=== PATIENT | female | born 1985 | race Caucasian/White ===

== ENCOUNTER 2018-02-13 16:26 | Emergency (ER) | payer MEDICAID, SELFPAY ==
[2018-02-13 16:30] VITALS: BP 133/81; PULSE 78; RESP 16; TEMP 37; O2SAT 99
--- NOTE | 2018-02-13 16:48 | ED.GENADUL_ITS ---
Disposition Clinical Impression: Threatened miscarriage in early Disposition: HOME Condition: Fair Additional Instructions: Encourage hydration. Stop smoking. Continue with vitamins. Please call [employer] [facility] Friday morning to schedule follow-up as soon as possible. Your evaluation here is indeterminate. You may be earlier than you expected based on your last menstrual period. If you develop abdominal pain, fever/chills, increased. Bleeding or other new/worsening symptoms please seek care urgently once again. Please call the number listed below to schedule appointment. Referrals: Kristal Contreras MD [ [facility] STAFF PHYSICIAN] - Medical Decision Making - Lab Data Laboratory Tests 02/13/18 02/13/18 02/13/18 16:40 17:19 17:19 WBC 6.98 RBC 5.07 Hgb 14.7 Hct 43.2 MCV 85.2 MCH 29.0 MCHC 34.0 RDW 12.6 Plt Count 328 MPV 8.9 Immature Gran % 0.1 Neutrophils % 53.1 Lymphocytes % 36.0 Monocytes % 7.9 Eosinophils % 2.6 Basophils % 0.3 Absolute Neutrophils 3.71 Absolute Lymphocytes 2.51 Absolute Monocytes 0.55 Absolute Eosinophils 0.18 Absolute Basophils 0.02 Sodium 136 Potassium 3.2 L Chloride 102 Carbon Dioxide 24.6 Anion Gap 9.4 BUN 8 Creatinine 0.81 Estimated GFR/1.73 m2 >= 60.00 Glucose 91 Calcium 9.1 Total Bilirubin 0.3 AST 15 ALT 17 Alkaline Phosphatase 92 Total Protein 8.3 H Albumin 4.1 Beta HCG, Quant 7665 H Urine Color Yellow Urine Clarity Sl cloudy Urine pH 5.5 Ur Specific Grapevine >= 1.030 H Urine Protein Negative Urine Ketones Negative Urine Blood Moderate H Urine Nitrite Negative Urine Bilirubin Negative Urine Urobilinogen 0.2 Ur Leukocyte Esterase Negative Urine RBC 10-20 H Urine WBC 0-2 Ur Epithelial Cells Many Urine Crystals Negative Urine Bacteria Moderate Urine Casts Negative Urine Mucus Moderate Ur Culture Indicated? No/sq. contamination Urine Glucose Negative Patient ABO/Rh Antibody Screen 02/13/18 17:19 WBC RBC Hgb Hct MCV MCH MCHC RDW Plt Count MPV Immature Gran % Neutrophils % Lymphocytes % Monocytes % Eosinophils % Basophils % Absolute Neutrophils Absolute Lymphocytes Absolute Monocytes Absolute Eosinophils Absolute Basophils Sodium Potassium Chloride Carbon Dioxide Anion Gap BUN Creatinine Estimated GFR/1.73 m2 Glucose Calcium Total Bilirubin AST ALT Alkaline Phosphatase Total Protein Albumin Beta HCG, Quant Urine Color Urine Clarity Urine pH Ur Specific Grapevine Urine Protein Urine Ketones Urine Blood Urine Nitrite Urine Bilirubin Urine Urobilinogen Ur Leukocyte Esterase Urine RBC Urine WBC Ur Epithelial Cells Urine Crystals Urine Bacteria Urine Casts Urine Mucus Ur Culture Indicated? Urine Glucose Patient ABO/Rh A Positive Antibody Screen Negative Results reviewed for labs ordered during visit: Yes - Radiology Data Radiology results: report reviewed Ultrasound was reviewed by radiologist. They advised that there is 2 fluid collections within the endometrial cavity one measuring personally 3 cm in its greatest dimension with internal debris and a second adjacent measuring 1.2 cm. No pole is identified. This may represent a failed or ectopic also cannot be excluded and continued follow-up with serial beta hCG measurements and serial sonography as clinically indicated will be needed. Ovaries appear normal with normal blood flow and minimal follicular cyst. No significant free fluid. - Medical Decision Making Patient presents today with chief complaint of bleeding in the first trimester. Patient is not endorsing any abdominal pain. Reports at this point pain is minimal. For the past 2 days she is only going from 1 thin pad daily and reports that blood on this is fairly minimal. However, she is concerned she passed a large clot this morning. Patient appears in no acute distress. No pain she is concerned she may be having a miscarriage. UPT was positive here. I did send a urinalysis and patient was also endorsing dysuria. Laboratory evaluation significant for hCG of 7665. This is lower than expected. No leukocytosis. Labs otherwise without motor findings. Potassium slightly low at 3.2. Advised oral intake of potassium. Patient is B+. No RhoGam is indicated. Ultrasound reviewed by electrical instrumentation technician who advised that there is 2 fluid collections in the uterus. Advised no pole. Ovaries without significant abnormality Radiologist reviewed imaging and agrees with the above help. However, they advised that this may be a failed or an ectopic could not be excluded. Patient is not endorsing any discomfort. None was elicited on exam. No cramping. At this point, I do not have other reason to leave ectopic particularly as the ovaries appeared normal with normal blood flow. Discussed the above findings with the patient. Advised that at this point she may just be earlier than we expected given the hCG and the findings on the ultrasound. However, I cannot exclude miscarriage at this point. Contacted [facility] and spoke with on-call physician. He advised that the patient may be earlier than expected. Patient does report that she frequently has irregular menses. Plan is for patient to follow-up with [facility] on Friday. Patient and I discussed plan moving forward. Encourage hydration. Advised that she continue with her vitamins. I encouraged smoking cessation. She will contact [facility] Friday morning to schedule appointment for follow-up. We discussed that she would need repeat testing to ensure viability of current . Discussed new/worsening symptoms when to seek care urgently once again. All of her questions and concerns were addressed and she is in agreement this plan. History of Present Illness - General Chief complaint: [facility] Stated complaint: BLEEDING/PREG Time Seen by Provider: 02/13/18 16:43 Source: patient, family, RN notes reviewed Mode of arrival: ambulatory Limitations: no limitations - History of Present Illness Initial comments: Patient is a 32-year-old female presenting today with chief complaint of bleeding in the first trimester . Patient reports that LMP was December 10. She reports she is taken to home test both of which were positive. Patient has not yet been seen by [facility]. Patient reports discomfort of with long-term significant other. Patient has 1 child at home and has history of 1 miscarriage. Patient has had a D&C historically. She reports that she has not been tested for STDs recently. Denies any vaginal discharge or dyspareunia prior to bleeding. States she has been using one thin pad daily. However, she reports that she had one large clot this morning when urinating. The bleeding has slowed down once again. She denies any cramping. No fevers or chills. No abdominal pain. No nausea vomiting. No change in bowel habits. Patient reports she is intermittent dysuria. States that when here, she had one episode of dysuria. Has been experiencing this prior to that. She reports she is not having any vaginal discharge prior to the onset of bleeding yesterday. She denies any fevers or chills. No previous abdominal surgeries. Patient is an active smoker. She does report that she is taking vitamins. - Related Data Unknown [No Known Home Meds] 02/13/18 Allergies Allergy/AdvReac Type Severity Reaction Status Date / Time sertraline AdvReac Restless Unverified 02/13/18 16:34 legs Review of Systems Constitutional: no symptoms reported Respiratory: no symptoms reported Gastrointestinal: as per HPI Genitourinary: as per HPI Musculoskeletal: as per HPI Skin: denies: rash, lesions Neurological: denies: headache Past Medical History - Past Medical History Medical history: no medical history Surgical history: other (D&C) LMP comments: - Social History Living Situation: lives with family General Exam - General Limitations: no limitations General appearance: alert, in no apparent distress - Eye Eye exam: Present: normal apperance - Respiratory Respiratory exam: Present: normal lung sounds bilaterally. Absent: respiratory distress - Cardiovascular Cardiovascular Exam: Present: regular rate, normal rhythm, normal heart sounds - GI/Abdominal GI/Abdominal exam: Present: soft, normal bowel sounds. Absent: distended, tenderness, guarding, rebound, rigid, organomegaly, mass - Rectal Rectal exam: Present: deferred - Extremities Exam Extremities exam: Present: normal inspection. Absent: pedal edema, calf tenderness - Back Exam Back exam: Present: normal inspection. Absent: CVA tenderness (R), CVA tenderness (L) - Neurological Exam Neurological exam: Present: alert, normal gait - Psychiatric Psychiatric exam: Present: normal affect, normal mood - Skin Skin exam: Present: warm, dry, normal color Course Vital Signs - 24 hr 02/13/18 16:30 Temperature 37.0 C Pulse 78 Respiratory 16 Rate Blood Pressure 133/81 Pulse Oximetry 99
[2018-02-13 16:59] LABS: Bilirubin Negative (Negative); Blood Moderate (Negative); Clarity Sl Cloudy; Glucose Negative (Negative); Ketones Negative (Negative); Leukocyte Esterase Negative (Negative); Nitrite Negative (Negative); Specific Gravity >= 1.030 (1.005-1.025); Urobilinogen 0.2 EU/dL (Up TO 0.2); pH 5.5 (5-8)
[2018-02-13 17:06] LABS: Bacteria Moderate HPF (Negative); Crystals Negative HPF (Negative); Epithelial Cells Many HPF (Negative); WBC 0-2 HPF (0-5)
[2018-02-13 17:07] LABS: C & S Indicated? No/Sq. Contamination; Casts Negative LPF (Negative); Mucus Moderate (Negative)
--- NOTE | 2018-02-13 17:07 | DI.REPORT_ITS ---
Many abnormalities cannot be diagnosed. A normal exam does not exclude a congenital anomaly. Radiology No. [id number] LMP: 12/10/17 Exam Date: 02/13/18 [facility] wks days on EDC ([facility]) Confirmed: HISTORY: BLEEDING IN FIRST TRIMESTER ---- PREDICTED GESTATIONAL AGE NUMBER weeks with a range of week to weeks. 1 2 3 Multiple Determined by___1STUS___LMP___HISTORY Info. pertaining to fetus # PLACENTA PRESENTATION Grade Cephalic___ Anterior___Posterior___ Breech____ Right Left Transverse(head right___ Fundal___Low-lying___Previa___ Transverse(head left___ Varying BIOMETRY AMNIOTIC FLUID BPD: mm weeks Normal HC: mm weeks Oligo Polyhydramnios AC: mm weeks FL: mm weeks AMNIOTIC FLUID INDEX >26 WK CRL: mm weeks Cisterna Magna: mm CI: RUQ: LUQ Cerebellum: cm EFW: grams Percentile RLQ: LLQ GSD: 21 mm Total: cms Composite AGE= 7.1 wks EDC by US____10/01/18 BIOPHYSICAL PROFILE ANATOMY IDENTIFIED SCORE 0/2 Heart: 4-Chamber___Rate:BPM LVOT: RVOT: Amniotic Fluid(>2cms)____ Stomach: Kidneys: Respirations (>30 secs) Bladder: Post. Fossa: Body Flex/Extension 3 vessel cord: Ventricles: cord insertion: Lips:____ Extremity Flex/Extension spinal morphology: Nose: Total Score= Palate: NS=not seen Routine examination. Within the endometrial cavity, there are two fluid collections, the largest measures approximately 3 cm. in diameter. There is internal debris. No pole or yolk sac is identified. The second adjacent fluid collection measures 1.2 cm. No pole pole or yolk sac is seen internally. The ovaries were visualized bilaterally. Follicular cysts are seen bilaterally in the ovaries, the largest follicular cyst is seen on the right ovary and measures 1.9 by 1.3 cm. No internal blood flow or debris is seen. No significant free fluid is seen in the pelvis. IMPRESSION: Two fluid collections seen within the endometrial canal. No pole or yolk sac is identified. This may represent a failed / non viable . Abnormal such as an ectopic cannot be entirely excluded. Continued follow up is recommended. Serial sonography and beta HCG measurements are recommended.
[2018-02-13 17:35] LABS: Abs Immature Grans 0.01 k/cumm (0.0-0.09); Absolute Basophil Count 0.02 k/cumm (0.0-0.2); Absolute Eosinophil Count 0.18 k/cumm (0.0-0.7); Absolute Lymphocyte Count 2.51 k/cumm (1.2-3.4); Absolute Monocyte Count 0.55 k/cumm (0.11-0.7); Absolute Neutrophil Count 3.71 k/cumm (1.2-6.7); Basophils % 0.3; Eosinophils % 2.6; HCT 43.2 % (36.0-46.0); HGB 14.7 g/dL (12.0-15.5); Immature Grans % 0.1; Mean Corpuscular Volume 85.2 fL (80-95); Mean Platelet Volume 8.9 fL (8.0-11.0); Monocytes % 7.9; Neutrophils % 53.1; Platelet Count 328 x1000/uL (130-400); RBC 5.07 m/cumm (4.00-5.20); RBC Distribution Width 12.6 % (11.7-14.6); White Blood Cell Count 6.98 k/cumm (4.4-10.8)
[2018-02-13 18:07] LABS: ALT 17 U/L (12-78); AST 15 U/L (15-37); Albumin 4.1 g/dL (3.4-5.0); Alkaline Phosphatase 92 U/L (46-116); Anion Gap 9.4 mmol/L (3-11); BUN 8 mg/dL (7-18); Bilirubin, Total 0.3 mg/dL (0.2-1.0); CO2 24.6 mmol/L (21.0-32.0); CREATININE 0.81 mg/dL (0.55-1.02); Calcium 9.1 mg/dL (8.5-10.1); Chloride 102 mmol/L (98-107); Glucose 91 mg/dL (70-100); Potassium 3.2 mmol/L (3.5-5.1); Sodium 136 mmol/L (136-145); Total Protein 8.3 g/dL (6.4-8.2)
[2018-02-13 18:09] LABS: HCG Quant, Pregnancy 7665 mIU/mL (1-3)
[2018-02-13 18:52] VITALS: BP 123/74; PULSE 74; RESP 16; TEMP 36.9; O2SAT 97
--- NOTE | 2018-02-13 18:53 | DI.VRAD_ITS ---
EXAM: US , Transvaginal CLINICAL HISTORY: 32 years old, female; Signs and symptoms; Lmp or gestational age (in weeks): Lmp 12/10/2017 (unsure of dates); Other: Mild vaginal bleeding x 2 days; TECHNIQUE: Real-time transvaginal obstetrical ultrasound of the maternal pelvis and a first trimester with image documentation. Transvaginal imaging was used for better evaluation of the fetus and adnexa. COMPARISON: No relevant prior studies available. FINDINGS: 2 fluid collections within the endometrial cavity one measuring approximately 3 cm in greatest dimension with internal debris and a second adjacent measuring 1.2 cm. No pole is identified. This may or present a failed or ectopic also could not be excluded and continued followup with serial beta hCG measurements and serial sonography as clinically indicated will be needed. Ovaries appear normal with normal blood flow and minimal follicular cysts. No significant free fluid. IMPRESSION: Equivocal findings as described. The possibility of ectopic cannot be excluded and continued follow up with serial beta hCG measurements will be needed. Dictated and Authenticated by: Anthony Cervantes MD. Ordering:THAD COMBS MD
== END 2018-02-13 18:57 | disposition home or self-care (01) ==
PROVIDERS: Physician Assistant; Emergency Provider Emergency Medicine
DX: O20.0 Threatened abortion (principal); O99.331 Smoking (tobacco) complicating pregnancy, first trimester; Z3A.00 Weeks of gestation of pregnancy not specified
CPT/HCPCS: 36415; 80053; 81025; 86850; 86900; 86901; 99284; 76817; 81003; 81015; 84702; 85025

== ENCOUNTER 2018-03-04 15:03 | Outpatient (CLI) | payer MEDICAID, SELFPAY ==
--- NOTE | 2018-03-04 11:48 | HPE_ITS ---
Date of service: 03/04/18 Time of Service: 11:48 Assessment and Plan (1) Anxiety: Current visit: No Status: Acute (2) Depressive disorder: Current visit: No Status: Acute (3) Nicotine dependence: Current visit: No Status: Acute (4) Incomplete miscarriage with blood clot: Start date: 02/19/18 Current visit: Yes Status: Acute Incomplete SAB with continued heavy bleeding patient currently 11 weeks 2 days estimated gestational age. I have recommended a repeat ultrasound diagnostic imaging to confirm my findings of a intrauterine with no evidence of adnexal masses. Patient was counseled and accepts cervical dilatation and suction evacuation of uterine contents. Informed consent was obtained. He was counseled regarding the risk of bleeding and just including bowel bladder and uterus secondary to perforation. She was counseled regarding the risk of infection. [facility]. Pending those findings she will be scheduled for a D&C hopefully later today. Ms. Og is a 32-year-old female with a last menstrual period of 2017 who presents to [facility] with daily uterine bleeding since an evaluation in the emergency department at [facility] at the end of January 2018. A pelvic ultrasound showed no evidence for an intrauterine and normal adnexa. Her serum hCG was approximately 3000 mIU/ml. She was advised to follow- up at [facility] but has been unable to do so. She became concerned because the bleeding has persisted and has worsened with passage of clots and saturation of yanick pads every few hours. Patient is Rh+. Review of Systems Constitutional Reports poor appetite Cardiovascular Reports as per HPI Respiratory Reports cough (Occasional cough) Gastrointestinal Reports other (Decreased appetite) Genitourinary Reports metrorrhagia (Daily bleeding since end january. Saturated peripads every few hours.) and Reports pelvic pain (Diffuse nonfocal pelvic pain bilaterally) Musculoskeletal Reports system reviewed and no additional complaints, except as docu Neurologic Reports as per HPI Psychiatric Reports anxiety (This is a planned patient is understandably upset about the loss of the ) PFSH Family History Mother Disorder of thyroid gland Melanoma Sister Disorder of thyroid gland Father Diabetes Grandfather Myocardial infarction Medical History Tobacco use (Acute) Elective (Resolved) Social History adopted: No number of children: 0 current occupational status: employed 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: daily duration: 15-30 minutes/day Smoking/Tobacco Use Status: Current every day tobacco type: cigarettes alcohol intake: never substance use type: does not use seatbelt use: always Meds Home Medications Medication Instructions Recorded Confirmed Type Unknown [No Known Home Meds] 02/13/18 03/04/18 History Allergies Allergy/AdvReac Type Severity Reaction Status Date / Time sertraline AdvReac Restless Unverified 03/04/18 10:42 legs Exam Const General: cooperative and anxious (Tearful but cooperative) Nutritional Appearance: average body habitus Orientation: alert, awake and oriented x3 Neck Neck: normal visual inspection Thyroid: thyroid normal Resp Effort & Inspection: normal respiratory effort and able to speak in complete sentences Cardio Rate: regular rate Rhythm: regular rhythm Heart Sounds: S1 normal and S2 normal GI Palpation: soft and no hepatosplenomegaly External Female Exam: external appearance normal Speculum Exam - Vagina: other (Bright red blood in vagina) Speculum Exam - Cervix: closed cervix Manual OB Exam: other Skin General skin exam: no rashes or lesions noted and pallor Lesions: lesion noted (Facial acne) Hair: normal Nails: normal Extrem General: normal to inspection
--- NOTE | 2018-03-04 13:10 | DI.US_ITS ---
SYMPTOMS/DIAGNOSIS: INCOMPLETE SPONTANEOUS , O03.4 OBSTETRICAL ULTRASOUND: Many abnormalities cannot be diagnosed. A normal exam does not exclude a congenital anomaly. Radiology No. LMP: Exam Date: [facility] wks days on EDC ([facility]) Confirmed: HISTORY: ---- PREDICTED GESTATIONAL AGE NUMBER weeks with a range of week to weeks. 1 2 3 Multiple Determined by___1STUS___LMP___HISTORY Info. pertaining to fetus # PLACENTA PRESENTATION Grade Cephalic___ Anterior___Posterior___ Breech____ Right Left Transverse(head right___ Fundal___Low-lying___Previa___ Transverse(head left___ Varying BIOMETRY AMNIOTIC FLUID BPD: mm weeks Normal HC: mm weeks Oligo Polyhydramnios AC: mm weeks FL: mm weeks AMNIOTIC FLUID INDEX >26 WK CRL: mm weeks Cisterna Magna: mm CI: RUQ: LUQ Cerebellum: cm EFW: grams Percentile RLQ: LLQ Total: cms Composite AGE= wks EDC by US BIOPHYSICAL PROFILE ANATOMY IDENTIFIED SCORE 0/2 Heart: 4-Chamber___Rate:BPM LVOT: RVOT: Amniotic Fluid(>2cms)____ Stomach: Kidneys: Respirations (>30 secs) Bladder: Post. Fossa: Body Flex/Extension 3 vessel cord: Ventricles: cord insertion: Lips:____ Extremity Flex/Extension spinal morphology: Nose: Total Score= Palate: NS=not seen COMMENTS: Routine examination was performed. Comparison is 02/13/18. The endometrial stripe is thickened and heterogeneous. There is fluid in the lower uterine segment portion of the endometrial canal. The endometrial canal measures 2.1 cm in thickness. There is blood flow seen within the heterogeneous endometrial tissue. No evidence of an intrauterine gestational sac is present. Both ovaries were visualized and are grossly unremarkable. Small follicular cysts are seen bilaterally within the ovaries. There is normal blood flow to the ovaries bilaterally. No evidence of torsion is seen. No significant free fluid is seen in the pelvis. IMPRESSION: Interval heterogeneous thickened vascular endometrium. The findings are suspicious for a failed . Spontaneous in progress should be considered. These findings were discussed with Dr. Contreras on the date of the examination.
== END 2018-03-04 15:23 ==
PROVIDERS: Visit Provider Obstetrics & Gynecology Gynecology
DX: O03.4 Incomplete spontaneous abortion without complication (principal); R93.8 Abnormal findings on diagnostic imaging of other specified body structures; N83.01 Follicular cyst of right ovary; N83.02 Follicular cyst of left ovary
CPT/HCPCS: 76801

== ENCOUNTER 2018-03-05 10:11 | PSDC | payer MEDICAID, SELFPAY ==
[2018-03-05 10:30] VITALS: BP 116/69; PULSE 92; RESP 18; TEMP 37.6; O2SAT 98
[2018-03-05 10:58] LABS: HCT 29.7 % (36.0-46.0); Mean Corp. HGB Concentration 33.7 g/dL (32.0-36.0); Mean Corpuscular Hemoglobin 29.2 pg (27.0-33.0); Mean Corpuscular Volume 86.8 fL (80-95); Mean Platelet Volume 8.7 fL (8.0-11.0); Platelet Count 372 x1000/uL (130-400); RBC 3.42 m/cumm (4.00-5.20); RBC Distribution Width 12.3 % (11.7-14.6); White Blood Cell Count 6.31 k/cumm (4.4-10.8)
[2018-03-05] MEDS: Lactated Ringers 1,000 ML 125 ML IV (11:06)
[2018-03-05] MEDS: DOXYCYCLINE 100 MG in Normal Saline 100 ML IVPB (11:40)
[2018-03-05] MEDS: Lidocaine 1% Pres-Free 5 ML VIAL 20 ML (11:51)
--- NOTE | 2018-03-05 11:58 | POCSPONT_PTH ---
PATIENT: Ana Og LOC: [facility] U#:[id number] AGE/SX: 32/F ROOM: RE03/05/[address]: Kristal Contreras : 1985 BED: DIS: 03/05/2018 SPEC #: [id number] RECD: 03/05/18 12:27 STATUS: MEI REQ #: [id number] TIFFANIE: 03/05/18 11:[address]: Kristal Contreras DEPT: Surgical Specimen RECD BY: Nia Tao ENTERED: 03/05/18 12:27 SP TYPE: POCRYLIE STEWARD DR: None Tissues: 1 - ,SPONTANEOUS Procedures: GROSS AND MICRO LEVEL 4 Comments: [id number]
--- NOTE | 2018-03-05 12:15 | W.PM.DSUDISC ---
Discharge Plan Disposition Patient Disposition: HOME Condition: Fair Discharge Details Reason For Visit: INCOMPLETE AB Attending Provider: Kristal Contreras Primary Care Provider: NONE,NONE Home Meds and New Rx's Prescriptions: New methylergonovine [Methergine] 0.2 mg tablet 0.2 mg PO TID 3 Days Qty: 9 RF: 0 ibuprofen 600 mg tablet 600 mg PO QID PRN (Reason: pain) Qty: 30 RF: 1 methylergonovine [Methergine] 0.2 mg tablet 0.2 mg PO TID 3 Days Qty: 9 RF: 0 No Action methadone 10 mg/mL concentrate 40 mg PO DAILY RF: 0 ibuprofen 800 mg Tablet 800 mg PO PRN PRNRF: 0 Discharge Instructions Additional Instructions: Postoperative Instructions Outpatient Gynecology Because there will be medication in your system for the next 24 hours, you may feel a little sleepy. Your coordination will be affected. Therefore: Do not drive or operate dangerous equipment for 24 hours. Do not drink alcoholic beverages for 24 hours (not even beer). Plan to go home and rest for the day. Rest, drink liquids and eat lightly for the rest of the day. Do not plan to return to normal activity for two full days. Some women require 5-7 days to feel 100 percent. Arrange to have someone stay with you for the rest of the day. You should arrange for child care education coordinator on the day of surgery. If you have incisions, remove the bandage in 24 hours. You may have a sore throat or hoarseness after surgery. This usually lasts a short time and is relieved by drinking liquids. If hoarseness persists longer than 24 hours, please contact the anesthesia department by calling the hospital. Take Tylenol or Advil for cramping. If that does not work, you may be too active so try cutting back on your activities. You may use up to 3 Advil every (4) four to (6) six hours. Use the prescription medication in between doses of Advil if needed. You should be able to urinate as usual following the surgery. Any form of surgery can cause your menstrual cycle to become irregular. If you have had a D and C you may spot for a week after surgery and your next period will start in (4) four to (6) six weeks. If you have had the sterilization procedure no follow-up appointment is necessary. For other procedures you need a follow-up appointment (4) four to (6) six weeks following surgery. Please call the office for an appointment. If you had a Laparascopic procedure there are no restrictions on douching, tampons, intercourse or tub baths. If you had any vaginal procedure you may not use tampons, have intercourse or douche for 2 weeks. you may take a shower or bath. Please report any of the following conditions or any questions regarding your condition to your doctor and the Day Surgery Unit: Increased drainage or foul smelling drainage. Temperature of 101 F or above. Excessive pain. If you are unable to contact your doctor, contact the hospital at [phone]. Continue all your regular medications unless directed otherwise. Revised 11/27/10 Activity:: Activity as Tolerated Activity:: Activity as Tolerated Equipment/Supplies:: No Equipment Needed Diet:: as tolerated. Discharge Data Discharge Comment: Rx for Methergine and Ibuprofen efaxed to pharmacy. Have pt see me in office in 2 weeks.
--- NOTE | 2018-03-05 12:22 | PDOC.DSDIS_ITS ---
Discharge Plan Disposition Patient Disposition: HOME Condition: Fair Discharge Details Reason For Visit: INCOMPLETE AB Attending Provider: Kristal Contreras Primary Care Provider: NONE,NONE Home Meds and New Rx's Prescriptions: New methylergonovine [Methergine] 0.2 mg tablet 0.2 mg PO TID 3 Days Qty: 9 RF: 0 ibuprofen 600 mg tablet 600 mg PO QID PRN (Reason: pain) Qty: 30 RF: 1 methylergonovine [Methergine] 0.2 mg tablet 0.2 mg PO TID 3 Days Qty: 9 RF: 0 No Action methadone 10 mg/mL concentrate 40 mg PO DAILY RF: 0 ibuprofen 800 mg Tablet 800 mg PO PRN PRNRF: 0 Discharge Instructions Additional Instructions: Postoperative Instructions Outpatient Gynecology * Because there will be medication in your system for the next 24 hours, you may feel a little sleepy. Your coordination will be affected. Therefore: Do not drive or operate dangerous equipment for 24 hours. Do not drink alcoholic beverages for 24 hours (not even beer). Plan to go home and rest for the day. * Rest, drink liquids and eat lightly for the rest of the day. Do not plan to return to normal activity for two full days. Some women require 5-7 days to feel 100 percent. * Arrange to have someone stay with you for the rest of the day. You should arrange for attendant child activity on the day of surgery. * If you have incisions, remove the bandage in 24 hours. * You may have a sore throat or hoarseness after surgery. This usually lasts a short time and is relieved by drinking liquids. If hoarseness persists longer than 24 hours, please contact the anesthesia department by calling the hospital. * Take Tylenol or Advil for cramping. If that does not work, you may be too active so try cutting back on your activities. You may use up to 3 Advil every (4) four to (6) six hours. Use the prescription medication in between doses of Advil if needed. * You should be able to urinate as usual following the surgery. * Any form of surgery can cause your menstrual cycle to become irregular. If you have had a D and C you may spot for a week after surgery and your next period will start in (4) four to (6) six weeks. * If you have had the sterilization procedure no follow-up appointment is necessary. For other procedures you need a follow-up appointment (4) four to (6 ) six weeks following surgery. Please call the office for an appointment. * If you had a Laparascopic procedure there are no restrictions on douching, tampons, intercourse or tub baths. If you had any vaginal procedure you may not use tampons, have intercourse or douche for 2 weeks. you may take a shower or bath. * Please report any of the following conditions or any questions regarding your condition to your doctor and the Day Surgery Unit: Increased drainage or foul smelling drainage. Temperature of 101 F or above. Excessive pain. * If you are unable to contact your doctor, contact the hospital at [phone]. * Continue all your regular medications unless directed otherwise. Revised 11/27/10 Activity:: Activity as Tolerated Activity:: Activity as Tolerated Equipment/Supplies:: No Equipment Needed Diet:: as tolerated. Discharge Data Discharge Comment: Rx for Methergine and Ibuprofen efaxed to pharmacy. Have pt see me in office in 2 weeks.
[2018-03-05 12:40] VITALS: BP 107/74; PULSE 96; RESP 16; TEMP 36.2; O2SAT 96
[2018-03-05] MEDS: Methylergonovine 0.2 MG TAB PO (12:40)
[2018-03-05] MEDS: oxyCODONE 5 MG TAB PO (13:12)
--- NOTE | 2018-03-08 13:32 | W.PM.OP ---
Date of service: 03/05/18 Time of Service: 13:32 Operative Note Date of procedure: 03/05/18 Pre-op diagnosis: SAB, incomplete Post-op diagnosis: same Procedure: Cervical dilation and suction curettage Anesthesia: MAC Estimated blood loss (mL): 5 Pathology: other (Products of conception to pathology) Complications: None Patient was transported to: same day Patient's condition: stable Implants: None Indications: 32-year-old 2 para 0 female with a history of uterine bleeding and positive test since January 2018. Patient had a nonviable documented at the time of emergency room visit the end of January. She requested definitive treatment after expectant management was not successful. Findings: Uterus sounded to 10 cm. A moderate amount of tissue was obtained. Procedure Description: Patient was placed in the dorsal supine position where monitored anesthesia care was administered without difficulty. When she was comfortable she was then placed in the dorsal lithotomy position in yellowfin stirrups, prepped and draped in the usual sterile fashion. A bivalve speculum was placed into the vagina and the anterior lip of the cervix was infiltrated with 1 cc of 1% lidocaine without epinephrine. A single-tooth tenaculum was used to grasp the anterior lip of the cervix and a paracervical block was performed with injection of 4 cc of 1% lidocaine without epinephrine at the 4 and 8:00 cervical vaginal interface respectively. Cervix was dilated to a maximum of 19 [place] and a 8 mm curved suction cannula was then inserted into the uterine cavity attached to suction in all 4 quadrants of the uterine cavity were suctioned. After removal of the plastic conception the suction cannula was removed and a gentle banjo curetting was performed of all 4 quadrants of the uterine cavity. No extra tissue was obtained. A final pass of the suction curette was performed with no tissue obtained. The tenaculum was removed tenaculum site was noted be hemostatic instruments removed the patient's vagina she was placed in the dorsal supine position, very awakened and transported to recovery area in stable condition. All sponge lap and needle counts were correct ?2 she received 100 mg of doxycycline prior to the procedure.
== END 2018-03-05 13:45 | disposition home or self-care (01) ==
PROVIDERS: Visit Provider Obstetrics & Gynecology Gynecology
PROC: (CPT 59841; principal; 2018-03-05 11:00)
DX: O02.1 Missed abortion (principal)
CPT/HCPCS: 59812; 85027; 86850; 86900; 86901; 88305; J0131; J1100; J1885; J2405

== ENCOUNTER 2018-06-08 17:17 | Emergency (ER) | payer MEDICAID, SELFPAY ==
[2018-06-08 17:22] VITALS: BP 139/74; PULSE 128; RESP 18; TEMP 36.8; O2SAT 97
--- NOTE | 2018-06-08 17:31 | W.ED.GENAD ---
Discharge Plan Disposition Patient Disposition: HOME Condition: Fair Discharge Details Chief Complaint: Sorethroat Clinical Impression: Strep pharyngitis Primary Care Provider: None,None ED Provider: Elise Nguyen Home Meds and New Rx's Prescriptions: New penicillin V potassium 500 mg tablet 500 mg PO BID 10 Days Qty: 20 RF: 0 Continued methadone 10 mg/mL concentrate 40 mg PO DAILY RF: 0 Discharge Instructions Instructions: Pharyngitis (ED) Additional Instructions: Encourage hydration. Tylenol and/or ibuprofen as needed for discomfort. Please take antibiotics as prescribed, even if symptoms improve please take the entire course. Please follow-up with primary care in 1 week if not improving. If you develop difficulty breathing, shortness of breath, inability to open your mouth or other new/worsening symptoms please seek care urgently once again Medical Decision Making Patient 32-year-old female presenting today with chief complaint of sore throat times 2 days. Reports the pain has been severe and rates it a 9 out of 10. Denies any ear pain. Endorses congestion, rhinorrhea and mild cough. Reports she is been bringing up mucus with her cough. Patient is an active smoker. Patient is on daily methadone but reports secondary to her illness today she was unable to receive her daily dosing today. Patient is noted to be tachycardic at 128. She does appear dry. This may also be in part due to the lack of methadone dosing today. She does appear dehydrated on exam. Will give pain medication and viscous lidocaine to help with sore throat and attempt oral hydration Rapid strep testing was positive. We will begin the patient on antibiotics After oral hydration, heart rate is down to the 90s. Patient appears much improved. She reports is feeling better and is ready for discharge. Patient is able to tolerate p.o. medication well. We discussed new/worsening symptoms when to seek care urgently once again. Patient does have a local primary care and will contact them with symptoms if they persist over the next week. All of her questions and cocnerns were addressed, she is in agreement with this plan. HPI General Mode of arrival: ambulatory. Date/Time Provider Initiated Documentation: 06/08/18 17:30. Limitations to Documentation: no limitations. Information obtained by: patient. History of Present Illness 32 year old F presents to the emergency department with the chief complaint of sore throat, described as severe, with intensity rated at 9. Quality is described as sharp, and is localized to the mouth. Patient reports no radiation. Patient started experiencing this day(s) (2) and it has been constant. No relieving factors improve symptom(s), No exacerbating factors reported . Patient notes cough (mucousy cough that also began yesterday, smoker), fever/chills (endorses chills, no documented fever) and loss of appetite; denies headaches, nausea/vomiting, rash and shortness of breath. Patient did receive the following treatments prior to arrival, NSAID Related Data Home Medications Medication Instructions Recorded Confirmed methadone 10 mg/mL oral concentrate 40 mg PO DAILY ml 03/05/18 06/08/18 penicillin V potassium 500 mg PO BID 10 Days #20 tab 06/08/18 Previous Rx's Medication Instructions Recorded penicillin V potassium 500 mg PO BID 10 Days #20 tab 06/08/18 Allergies Allergy/AdvReac Type Severity Reaction Status Date / Time sertraline AdvReac Restless Unverified 06/08/18 17:26 legs General Stated Complaint: Sorethroat SHARDA: 4 Review of Systems Constitutional Reports as per HPI and Denies headache(s) Eyes Reports as per HPI, Denies eye discharge and Denies irritation ENT Reports as per HPI, Denies change in voice, Denies dental pain, Denies dizziness, Denies ear discharge, Denies otalgia, Denies facial pain, Denies headache(s), Denies hoarseness, Reports nasal congestion, Reports nasal discharge, Reports neck pain, Reports sore throat and Denies tongue swelling Cardiovascular Reports as per HPI, Denies chest pain and Denies dyspnea Respiratory Reports as per HPI, Reports chest congestion, Reports cough, Denies dyspnea, Denies stridor and Denies wheezing Gastrointestinal Reports as per HPI, Denies abdominal pain, Denies change in bowel habits, Denies nausea and Denies vomiting Musculoskeletal Reports neck pain Integumentary/Breasts Reports as per HPI and Denies rash Neurologic Denies dizziness and Denies headache(s) Allergic/Immunologic Denies tongue swelling and Denies wheezing [facility] Medical History Methadone maintenance therapy patient (Acute) SAB (spontaneous ) (Acute) Tobacco use (Acute) Elective (Resolved) Family History Mother Disorder of thyroid gland Melanoma Sister Disorder of thyroid gland Father Diabetes Grandfather Myocardial infarction Social History adopted: No number of children: 0 current occupational status: employed 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 Smoking/Tobacco Use Status: Current every day tobacco type: cigarettes alcohol intake: never substance use type: does not use seatbelt use: always Exam Const General: cooperative, healthy appearing, comfortable, no acute distress, well developed and well groomed Nutritional Appearance: average body habitus and well nourished Orientation: alert and awake [facility] Head: normal to inspection, normocephalic and atraumatic Ears: hearing grossly normal bilaterally, external ears normal and TM's normal bilaterally General nose exam: external nose normal and nares normal Face and sinus: normal facial exam, sinuses nontender and face symmetric Mouth: lip normal, tongue normal, oropharynx normal, mucous membranes dry (patient appears dry), no audible dysphonia, no drooling, no muffled voice, no trismus and No restricted motion Teeth and gingiva: dentition normal Throat: posterior oropharynx abnormal (erythematous with bilateral tonsillar swelling, exudate noted on right tons), tonisls abnormal, uvula midline and posterior oropharynx abnormal erythema and exudates; no lacerations and no foreign body Eyes General: appearance normal, both eyes and all related structures Neck Neck: normal visual inspection, full ROM, no meningeal signs, no anterior neck swelling and lymphadenopathy Resp Effort & Inspection: normal respiratory effort, able to speak in complete sentences and no respiratory distress Auscultation: clear to auscultation bilaterally, no rales, no rhonchi and no wheezes Cardio Rate: regular rate Rhythm: regular rhythm Heart Sounds: S1 normal and S2 normal Skin General skin exam: no rashes or lesions noted Neuro General: alert and awake Cognition: normal cognition Speech: speech normal Gait: normal gait Psych Appearance: grossly normal and well kempt Mental Status: mental status grossly normal Speech and Movement: speech and movement normal Course Vital Signs Temperature 36.8 C 06/08/18 17:22 Pulse 128 H 06/08/18 17:22 Respiratory Rate 18 06/08/18 17:22 Blood Pressure 139/74 06/08/18 17:22 Pulse Oximetry 97 06/08/18 17:22 Temperature 36.8 C 06/08/18 17:22 Temperature Source Temporal Artery Scan 06/08/18 17:22 Pulse 128 H 06/08/18 17:22 Respiratory Rate 18 06/08/18 17:22 Respiratory Effort 06/08/18 17:27 Blood Pressure 139/74 06/08/18 17:22 Blood Pressure Position Sitting 06/08/18 17:22 Pulse Oximetry 97 06/08/18 17:22 Oxygen Delivery Method Room Air 06/08/18 17:22 Oxygen Flow Rate 0 06/08/18 17:22 Pain Level 9 06/08/18 17:22 Comment 06/08/18 17:22
--- NOTE | 2018-06-08 17:55 | ED.GENADUL_ITS ---
Discharge Plan Disposition Patient Disposition: HOME Condition: Fair Discharge Details Chief Complaint: Sorethroat Clinical Impression: Strep pharyngitis Primary Care Provider: None,None ED Provider: Elise Nguyen Home Meds and New Rx's Prescriptions: New penicillin V potassium 500 mg tablet 500 mg PO BID 10 Days Qty: 20 RF: 0 Continued methadone 10 mg/mL concentrate 40 mg PO DAILY RF: 0 Discharge Instructions Instructions: Pharyngitis (ED) Additional Instructions: Encourage hydration. Tylenol and/or ibuprofen as needed for discomfort. Please take antibiotics as prescribed, even if symptoms improve please take the entire course. Please follow-up with primary care in 1 week if not improving. If you develop difficulty breathing, shortness of breath, inability to open your mouth or other new/worsening symptoms please seek care urgently once again Medical Decision Making Patient 32-year-old female presenting today with chief complaint of sore throat times 2 days. Reports the pain has been severe and rates it a 9 out of 10. Denies any ear pain. Endorses congestion, rhinorrhea and mild cough. Reports she is been bringing up mucus with her cough. Patient is an active smoker. Patient is on daily methadone but reports secondary to her illness today she was unable to receive her daily dosing today. Patient is noted to be tachycardic at 128. She does appear dry. This may also be in part due to the lack of methadone dosing today. She does appear dehydrated on exam. Will give pain medication and viscous lidocaine to help with sore throat and attempt oral hydration Rapid strep testing was positive. We will begin the patient on antibiotics After oral hydration, heart rate is down to the 90s. Patient appears much improved. She reports is feeling better and is ready for discharge. Patient is able to tolerate p.o. medication well. We discussed new/worsening symptoms when to seek care urgently once again. Patient does have a local primary care and will contact them with symptoms if they persist over the next week. All of her questions and cocnerns were addressed, she is in agreement with this plan. HPI General Mode of arrival: ambulatory . Date/Time Provider Initiated Documentation: 06/08/18 17:30 . Limitations to Documentation: no limitations . Information obtained by: patient . History of Present Illness 32 year old F presents to the emergency department with the chief complaint of sore throat, described as severe, with intensity rated at 9. Quality is described as sharp, and is localized to the mouth. Patient reports no radiation. Patient started experiencing this day(s) (2) and it has been constant. No relieving factors improve symptom(s), No exacerbating factors reported . Patient notes cough (mucousy cough that also began yesterday, smoker), fever/chills (endorses chills, no documented fever) and loss of appetite; denies headaches, nausea/vomiting, rash and shortness of breath. Patient did receive the following treatments prior to arrival, NSAID Related Data Home Medications Medication Instructions Recorded Confirmed methadone 10 mg/mL oral concentrate 40 mg PO DAILY ml 03/05/18 06/08/18 penicillin V potassium 500 mg PO BID 10 Days #20 tab 06/08/18 Previous Rx's Medication Instructions Recorded penicillin V potassium 500 mg PO BID 10 Days #20 tab 06/08/18 Allergies Allergy/AdvReac Type Severity Reaction Status Date / Time sertraline AdvReac Restless Unverified 06/08/18 17:26 legs General Stated Complaint: Sorethroat SHARDA: 4 Review of Systems Constitutional Reports as per HPI and Denies headache(s) Eyes Reports as per HPI, Denies eye discharge and Denies irritation ENT Reports as per HPI, Denies change in voice, Denies dental pain, Denies dizziness, Denies ear discharge, Denies otalgia, Denies facial pain, Denies headache(s), Denies hoarseness, Reports nasal congestion, Reports nasal discharge, Reports neck pain, Reports sore throat and Denies tongue swelling Cardiovascular Reports as per HPI, Denies chest pain and Denies dyspnea Respiratory Reports as per HPI, Reports chest congestion, Reports cough, Denies dyspnea, Denies stridor and Denies wheezing Gastrointestinal Reports as per HPI, Denies abdominal pain, Denies change in bowel habits, Denies nausea and Denies vomiting Musculoskeletal Reports neck pain Integumentary/Breasts Reports as per HPI and Denies rash Neurologic Denies dizziness and Denies headache(s) Allergic/Immunologic Denies tongue swelling and Denies wheezing [facility] Medical History Methadone maintenance therapy patient (Acute) SAB (spontaneous ) (Acute) Tobacco use (Acute) Elective (Resolved) Family History Mother Disorder of thyroid gland Melanoma Sister Disorder of thyroid gland Father Diabetes Grandfather Myocardial infarction Social History adopted: No number of children: 0 current occupational status: employed 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 Smoking/Tobacco Use Status: Current every day tobacco type: cigarettes alcohol intake: never substance use type: does not use seatbelt use: always Exam Const General: cooperative, healthy appearing, comfortable, no acute distress, well developed and well groomed Nutritional Appearance: average body habitus and well nourished Orientation: alert and awake [facility] Head: normal to inspection, normocephalic and atraumatic Ears: hearing grossly normal bilaterally, external ears normal and TM's normal bilaterally General nose exam: external nose normal and nares normal Face and sinus: normal facial exam, sinuses nontender and face symmetric Mouth: lip normal, tongue normal, oropharynx normal, mucous membranes dry (patient appears dry), no audible dysphonia, no drooling, no muffled voice, no trismus and No restricted motion Teeth and gingiva: dentition normal Throat: posterior oropharynx abnormal (erythematous with bilateral tonsillar swelling, exudate noted on right tons), tonisls abnormal, uvula midline and posterior oropharynx abnormal erythema and exudates; no lacerations and no foreign body Eyes General: appearance normal, both eyes and all related structures Neck Neck: normal visual inspection, full ROM, no meningeal signs, no anterior neck swelling and lymphadenopathy Resp Effort & Inspection: normal respiratory effort, able to speak in complete sentences and no respiratory distress Auscultation: clear to auscultation bilaterally, no rales, no rhonchi and no wheezes Cardio Rate: regular rate Rhythm: regular rhythm Heart Sounds: S1 normal and S2 normal Skin General skin exam: no rashes or lesions noted Neuro General: alert and awake Cognition: normal cognition Speech: speech normal Gait: normal gait Psych Appearance: grossly normal and well kempt Mental Status: mental status grossly normal Speech and Movement: speech and movement normal Course Vital Signs Temperature 36.8 C 06/08/18 17:22 Pulse 128 H 06/08/18 17:22 Respiratory Rate 18 06/08/18 17:22 Blood Pressure 139/74 06/08/18 17:22 Pulse Oximetry 97 06/08/18 17:22 Temperature 36.8 C 06/08/18 17:22 Temperature Source Temporal Artery Scan 06/08/18 17:22 Pulse 128 H 06/08/18 17:22 Respiratory Rate 18 06/08/18 17:22 Respiratory Effort 06/08/18 17:27 Blood Pressure 139/74 06/08/18 17:22 Blood Pressure Position Sitting 06/08/18 17:22 Pulse Oximetry 97 06/08/18 17:22 Oxygen Delivery Method Room Air 06/08/18 17:22 Oxygen Flow Rate 0 06/08/18 17:22 Pain Level 9 06/08/18 17:22 Comment 06/08/18 17:22
[2018-06-08] MEDS: Acetaminophen 500 MG TAB 1000 MG PO (18:27)
[2018-06-08] MEDS: Lidocaine 2% Viscous 15 ML CUP PO (18:27)
[2018-06-08] MEDS: Penicillin V POTASSIUM 500 MG TAB PO (18:27)
[2018-06-08 19:01] VITALS: PULSE 98; TEMP 36.9
[2018-06-08 19:03] VITALS: BP 126/84; PULSE 88; TEMP 36.6; O2SAT 100
[2018-06-08 19:17] VITALS: BP 126/84; PULSE 88; RESP 18; TEMP 36.6; O2SAT 100
== END 2018-06-08 19:19 | disposition home or self-care (01) ==
PROVIDERS: Emergency Provider Physician Assistant
DX: J02.0 Streptococcal pharyngitis (principal)
CPT/HCPCS: 87880; 99283

== ENCOUNTER 2018-09-24 15:23 | Outpatient (REF) | payer MEDICAID, SELFPAY | END 2018-09-24 15:43 | LOC: LBN 15:23 | PROVIDERS: Visit Provider Nurse Practitioner | DX: N39.0 Urinary tract infection, site not specified (principal) | CPT/HCPCS: 87077; 87086; 87186 ==

== ENCOUNTER 2018-11-02 16:54 | Outpatient (REF) | payer MEDICAID, SELFPAY | END 2018-11-02 17:14 | LOC: LBN 16:54 | PROVIDERS: PCP Nurse Practitioner Adult Health; Visit Provider Obstetrics & Gynecology | DX: O23.41 Unspecified infection of urinary tract in pregnancy, first trimester (principal) | CPT/HCPCS: 87086 ==

== ENCOUNTER 2019-01-08 10:53 | Outpatient (REF) | payer MEDICAID, SELFPAY ==
--- NOTE | 2019-01-08 10:30 | PAPFT_PTH ---
PATIENT: Ana Og LOC: [facility] U#:[id number] AGE/SX: 33/F ROOM: RE01/08/[address]: Mariah Beck : 1985 BED: DIS: 01/08/2019 SPEC #: [id number] RECD: 01/08/19 12:57 STATUS: MEI REGómez #: [id number] TIFFANIE: 01/08/19 10:[address]: Mariah Beck DEPT: [facility] Cytology RECD BY: Nia Tao ENTERED: 01/08/19 12:58 SP TYPE: PAPFT BIN DR: Frances Neil APRN Tissues: 1 - CX/ENDOCX FOR PAP SMEARS Procedures: PAP THIN PREP/[facility] Screening HPV DNA PROBE Comments: [id number] (CHLAMYDIA/GC)
[2019-01-08 14:03] LABS: *AMPHETAMINES SCREEN URINE Negative (Negative); *BARBITURATES SCREEN URINE Negative (Negative); *BENZODIAZEPINES SCREEN URINE Negative (Negative); Cannabinoids THC POSITIVE (Negative); Cocaine Screen,Urine Negative (Negative); METHADONE URINE SCREEN POSITIVE (Negative); OPIATES URINE SCREEN Negative (Negative)
[2019-01-08 14:09] LABS: Tricyclic Antidepressants Negative (Negative)
[2019-01-11 14:53] LABS: Chlamydia Result Negative; GC Result Negative; Specimen Description SEE COMMENTS
[2019-01-11 18:15] LABS: Buprenorphine Negative; Norbuprenorphine Negative
== END 2019-01-08 11:13 ==
LOC: LBN 10:53
PROVIDERS: PCP Nurse Practitioner Adult Health; Visit Provider Advanced Practice Midwife
DX: Z34.91 Encounter for supervision of normal pregnancy, unspecified, first trimester (principal); N89.8 Other specified noninflammatory disorders of vagina; Z12.4 Encounter for screening for malignant neoplasm of cervix; Z11.51 Encounter for screening for human papillomavirus (HPV)
CPT/HCPCS: 80307; 87491; 87591; 88142; 87086; 87480; 87510; 87624; 87660

== ENCOUNTER 2019-01-08 11:01 | Outpatient (CLI) | payer MEDICAID, SELFPAY ==
[2019-01-08 11:56] LABS: Kit/Specimen SENT
[2019-01-08 12:27] LABS: Abs Immature Grans 0.01 k/cumm (0.0-0.09); Absolute Basophil Count 0.03 k/cumm (0.0-0.2); Absolute Eosinophil Count 0.17 k/cumm (0.0-0.7); Absolute Lymphocyte Count 2.16 k/cumm (1.2-3.4); Basophils % 0.4; Eosinophils % 2.3; HCT 36.9 % (36.0-46.0); HGB 12.7 g/dL (12.0-15.5); Immature Grans % 0.1; Lymphocytes % 29.3; Mean Corp. HGB Concentration 34.4 g/dL (32.0-36.0); Mean Corpuscular Hemoglobin 28.5 pg (27.0-33.0); Mean Corpuscular Volume 82.9 fL (80-95); Mean Platelet Volume 9.5 fL (8.0-11.0); Monocytes % 8.1; Neutrophils % 59.8; Platelet Count 305 x1000/uL (130-400); RBC 4.45 m/cumm (4.00-5.20); RBC Distribution Width 14.7 % (11.7-14.6); White Blood Cell Count 7.37 k/cumm (4.4-10.8)
[2019-01-08 13:20] LABS: TSH (W/Ref FT4) 3.19 uIU/mL (0.358-3.74)
[2019-01-11 11:30] LABS: Rubella IgG Ab (UVM) Positive; Syphilis Serology (RPR) Negative (Negative); Varicella IgG Antibody Positive
[2019-01-11 13:00] LABS: Hepatitis C Ab w Rflx HCV PCR Negative (NEGAT)
[2019-01-11 13:05] LABS: HIV-1/2 Ag & Ab Screen Negative (NEGAT)
[2019-01-11 13:14] LABS: Hepatitis B Surface Ag Negative (NEGAT)
[2019-01-11 14:15] LABS: Calculated age at EDD 31 years; Cigarette smoking status non-smoker; GA used in risk estimate Scan estimate; IVF Pregnancy No; Initial or repeat testing Initial testing; Insulin dependent diabetes No; Maternal Weight 177 lbs; Number of Fetuses 1; Physician Phone Number 802-748-7300; Prev Pregnancy w/NTD No; RECOMMENDED FOLLOW UP None.; Results Summary Normal risk
== END 2019-01-08 11:21 ==
PROVIDERS: PCP Nurse Practitioner Adult Health; Visit Provider Advanced Practice Midwife
DX: Z34.91 Encounter for supervision of normal pregnancy, unspecified, first trimester (principal); Z36.89 Encounter for other specified antenatal screening; Z11.4 Encounter for screening for human immunodeficiency virus [HIV]; Z11.59 Encounter for screening for other viral diseases; Z12.4 Encounter for screening for malignant neoplasm of cervix; Z11.51 Encounter for screening for human papillomavirus (HPV); N89.8 Other specified noninflammatory disorders of vagina
CPT/HCPCS: 36415; 80055; 80307; 86787; 86803; 86850; 86900; 86901; 87340; 87389; 87491; 87591; 88142; 82105; 84443; 86592; 86762; 87086; 87480; 87510; 87624; 87660

== ENCOUNTER 2019-02-05 01:42 | Outpatient (CLI) | payer MEDICAID, SELFPAY ==
--- NOTE | 2019-02-05 16:15 | DI.US_ITS ---
Predicted Gestational Age: Indication/History: , Z34.90, SURVEY 19.3 Wks Range: 18.3 to 20.3 Prior US done on: Determined by: First US LMP History X EDC by prior US: For multiple gestations: Baby PLACENTA: Grade: 0-1 Location: Anterior Posterior X PRESENTATION: RT LT LOW LYING PREVIA Cephalic Trans (Head RT LT ) Varied X Breech BIOMETRY: Anatomy Identified: BPD: 45 mm 19.3 wks 4 chamber Heart X Heart Rate 139 BPM HC: 167 mm 19.2 wks LVOT X Post Fossa X AC: 146 mm 19.6 wks RVOT X Ventricles X FL: 29 mm 18.6 wks Stomach X Nose X Bladder X Lips X Cisterna Magna: 2.9 mm CI: 78 Kidneys X Palate X Cerebellum: 1.86 mm 3 vessel cord X Spine X EFW: 291 grms 44th % Cord Insertion X NS= not seen Composite Age (US) 19.3 wks Many abnormalities cannot be diagnosed. A normal exam does not exclude congenital abnormality. EDC by US 06/29/2019 Amniotic Fluid Index: Normal COMMENTS: RUQ: LUQ: RLQ: LLQ: Total: cm Biophysical Profile: Score 0/2 AGUSTINA (>2cm) Respirations (>30 sec) Body flexion/extension Extremity flexion/extension TOTAL SCORE OB ultrasound was performed utilizing second trimester protocol. biometry is consistent with a gestational age of 19 weeks 3 days and an EDC of 06/29/2019. Placenta is posterior with no evidence of placenta previa. There is a normal quantity of amniotic fluid. anomaly screen is within normal limits as per the OB ultrasound worksheet. I would note a question of hypoechoic focus in the upper lip of the fetus, cleft not excluded. Repeat scanning suggested which could be obtained at 30 weeks gestational age. No additional significant findings. CONCLUSION: 19 week 3 day intrauterine gestation, question is raised of cleft upper lip on somewhat limited scanning of this area. This is a questionable finding. Additional scanning of this area recommended.
== END 2019-02-05 02:02 ==
PROVIDERS: PCP Nurse Practitioner Adult Health; Visit Provider Advanced Practice Midwife
DX: Z34.92 Encounter for supervision of normal pregnancy, unspecified, second trimester (principal)
CPT/HCPCS: 76805

== ENCOUNTER 2019-04-30 11:35 | Outpatient (REF) | payer MEDICAID, SELFPAY ==
[2019-04-30 13:49] LABS: *AMPHETAMINES SCREEN URINE Negative (Negative); *BARBITURATES SCREEN URINE Negative (Negative); *BENZODIAZEPINES SCREEN URINE Negative (Negative); Cannabinoids THC POSITIVE (Negative); Cocaine Screen,Urine Negative (Negative); METHADONE URINE SCREEN Negative (Negative); OPIATES URINE SCREEN Negative (Negative)
[2019-04-30 13:51] LABS: Tricyclic Antidepressants Negative (Negative)
[2019-05-07 09:59] LABS: Buprenorphine Negative; Norbuprenorphine Negative
== END 2019-04-30 11:55 ==
LOC: LBN 11:35
PROVIDERS: PCP Nurse Practitioner Adult Health; Visit Provider Advanced Practice Midwife
DX: Z34.93 Encounter for supervision of normal pregnancy, unspecified, third trimester (principal)
CPT/HCPCS: 80307

== ENCOUNTER 2019-05-14 01:16 | Outpatient (CLI) | payer MEDICAID, SELFPAY ==
--- NOTE | 2019-05-14 11:31 | DI.US_ITS ---
EXAM: US OB AGUSTINA AND WEIGHT CLINICAL HISTORY: Medication exposure in . Z34.90 SUPERVISION NORMAL TECHNIQUE: Ultrasound performed using standard protocol. COMPARISON: US OB 2-3 trimester from 02/05/2019 FINDINGS: There is a single living intrauterine gestation. The estimated sonographic age is 34 weeks 4 days. heart rate is 131 beats per minute. Estimated weight is 2474 grams. This is the 78th pe rcentile. Amniotic fluid index is 21.7 centimeters. Visually the amniotic fluid is within normal limits. The placenta is posterior without evidence of previa. IMPRESSION: Single living intrauterine gestation with an estimated sonographic age of 34 weeks 4 days.
== END 2019-05-14 01:36 ==
PROVIDERS: PCP Nurse Practitioner Adult Health; Visit Provider Advanced Practice Midwife
DX: Z34.93 Encounter for supervision of normal pregnancy, unspecified, third trimester (principal); Z3A.34 34 weeks gestation of pregnancy
CPT/HCPCS: 76816

== ENCOUNTER 2019-06-11 02:15 | Outpatient (CLI) | payer MEDICAID, SELFPAY ==
--- NOTE | 2019-06-11 14:18 | DI.US_ITS ---
EXAM: US OB AGUSTINA WEIGHT CLINICAL HISTORY: S>D and breech, O26.849 TECHNIQUE: Ultrasound performed using standard protocol. OB ultrasound was performed utilizing 3rd trimester protocol. COMPARISON: US OB AGUSTINA WEIGHT from 05/14/2019 FINDINGS: biometry is consistent with gestational age of 38 weeks 4 days and an EDC of 06/21/2019. The estimated weight is 3530 grams, which is at the 85th percentile for predicted gestational age. The amniotic fluid index is 25 and there is visually an increased quantity of amniotic fluid consiste nt with mild polyhydramnios. cardiac activity noted at a rate of 122 BPM. Fetus is in lencho b reech presentation. There is no evidence of placenta previa. Placenta is anterior.
== END 2019-06-11 02:35 ==
PROVIDERS: PCP Nurse Practitioner Adult Health; Visit Provider Advanced Practice Midwife
DX: O26.843 Uterine size-date discrepancy, third trimester (principal); O40.3XX0 Polyhydramnios, third trimester, not applicable or unspecified; Z3A.38 38 weeks gestation of pregnancy
CPT/HCPCS: 76816

== ENCOUNTER 2019-06-17 12:17 | Inpatient (IN) | payer MEDICAID, SELFPAY ==
[2019-06-17] MEDS: Terbutaline 1 MG/ML VIAL 0.5 MG SC (12:53)
[2019-06-17] MEDS: Penicillin G POT. 5,000,000 UNITS in Normal Saline 100 ML 200 UNITS IVPB (13:32)
--- NOTE | 2019-06-17 13:35 | W.PM.OP ---
Date of service: 06/17/19 Time of Service: 13:35 Operative Note Operative Note DATE OF PROCEDURE: 06/17/19 PRE-OP DIAGNOSIS: 38 weeks. Early labor. Breech presentation. POST-OP DIAGNOSIS: same PROCEDURE: External cephalic version SURGEON: Roberto Patrick ANESTHESIA: none ESTIMATED BLOOD LOSS: 0 PATHOLOGY: none sent COMPLICATIONS: None Patient was transported to: floor Patient's condition: stable Findings: 1. Ultrasound at bedside confirmed footling breech presentation. Procedure Description: At the bedside ultrasound was performed confirming footling breech presentation. The patient was pretreated with 0.5 mg of subcutaneous terbutaline. monitoring showed a category 1 tracing prior to the start of the procedure. The spine was identified on ultrasound and on Adalid's. That was identified in the left upper quadrant. The breech was lifted from the pelvis and the head was flexed. Steady pressure was applied and the head was able to be brought down into the pelvis. Cephalic presentation was confirmed on ultrasound. The heart tracing was noted to be category 1 following the successful version.
[2019-06-17 13:40] LABS: Abs Immature Grans 0.06 k/cumm (0.0-0.09); Absolute Basophil Count 0.02 k/cumm (0.0-0.2); Absolute Lymphocyte Count 3.72 k/cumm (1.2-3.4); Absolute Monocyte Count 0.96 k/cumm (0.11-0.7); Basophils % 0.2; Eosinophils % 1.2; HCT 33.4 % (36.0-46.0); HGB 10.7 g/dL (12.0-15.5); Immature Grans % 0.5; Lymphocytes % 30.9; Mean Corpuscular Hemoglobin 25.5 pg (27.0-33.0); Mean Corpuscular Volume 79.7 fL (80-95); Mean Platelet Volume 9.5 fL (8.0-11.0); Neutrophils % 59.2; Platelet Count 314 x1000/uL (130-400); RBC 4.19 m/cumm (4.00-5.20); RBC Distribution Width 14.3 % (11.7-14.6); White Blood Cell Count 12.05 k/cumm (4.4-10.8)
[2019-06-17 13:42] LABS: Absolute Eosinophil Count 0.14 k/cumm (0.0-0.7); Absolute Neutrophil Count 7.13 k/cumm (1.2-6.7)
[2019-06-17 15:05] LABS: *AMPHETAMINES SCREEN URINE Negative (Negative); *BARBITURATES SCREEN URINE Negative (Negative); *BENZODIAZEPINES SCREEN URINE Negative (Negative); Cannabinoids THC POSITIVE (Negative); Cocaine Screen,Urine Negative (Negative); METHADONE URINE SCREEN POSITIVE (Negative); OPIATES URINE SCREEN Negative (Negative)
[2019-06-17 15:08] LABS: Tricyclic Antidepressants Negative (Negative)
[2019-06-17] MEDS: Penicillin G POT. 3,000,000 UNITS in Normal Saline 50 ML 100 UNITS IVPB ×2 (18:10→22:47)
[2019-06-17] MEDS: Normal Saline Flush 10 ML SYR IVP ×2 (18:18→19:37)
[2019-06-17] MEDS: FentaNYL/ROPIvacaine 2 mcg/ml and 0.1% 200 ML CADD Cassette EP ×2 (23:41→23:45)
[2019-06-18] MEDS: Penicillin G POT. 3,000,000 UNITS in Normal Saline 50 ML 100 UNITS IVPB ×3 (02:30→10:25)
[2019-06-18] MEDS: Lactated Ringers 1,000 ML 125 ML IV (03:34)
[2019-06-18] MEDS: Bupivacaine 0.25% Pres-Free 30 ML VIAL (14:06)
[2019-06-18] MEDS: Methadone Liquid 10 MG/ML 48 MG PO (14:06)
[2019-06-18] MEDS: Acetaminophen 325 MG TAB 650 MG PO (16:30)
[2019-06-18] MEDS: Docusate Sodium 100 MG CAP PO (16:30)
[2019-06-18] MEDS: Ibuprofen 600 MG TAB PO (16:30)
--- NOTE | 2019-06-18 17:45 | W.PM.PROGNOT ---
Date of Service Date of service: 06/18/19 Time of Service: 14:00 Subjective Subjective Interval history since last seen: I was called to evaluated the patient for an abnormal tracing during second stage of labor. The patient had been pushing for approximately 2 hours and displayed recurrent deep variable decelerations with slow return to baseline and minimal variability Objective Objective Clinical Data: Intake & Output 06/17/19 06/18/19 06/18/19 23:59 11:59 23:59 Intake Total 200 / 200 100 / 100 Balance 200 / 200 100 / 100 Weight 215 lb Intake: IV 200 / 200 100 / 100 Laboratory Results WBC 12.05 k/cumm (4.4-10.8) H 06/17/19 13:02 RBC 4.19 m/cumm (4.00-5.20) 06/17/19 13:02 Hgb 10.7 g/dL (12.0-15.5) L 06/17/19 13:02 Hct 33.4 % (36.0-46.0) L 06/17/19 13:02 MCV 79.7 fL (80-95) L 06/17/19 13:02 MCH 25.5 pg (27.0-33.0) L 06/17/19 13:02 MCHC 32.0 g/dL (32.0-36.0) 06/17/19 13:02 RDW 14.3 % (11.7-14.6) 06/17/19 13:02 Plt Count 314 x1000/uL (130-400) 06/17/19 13:02 MPV 9.5 fL (8.0-11.0) 06/17/19 13:02 Immature Gran % 0.5 06/17/19 13:02 Neutrophils % 59.2 06/17/19 13:02 Lymphocytes % 30.9 06/17/19 13:02 Monocytes % 8.0 06/17/19 13:02 Eosinophils % 1.2 06/17/19 13:02 Basophils % 0.2 06/17/19 13:02 Absolute Neutrophils 7.13 k/cumm (1.2-6.7) H 06/17/19 13:02 Absolute Lymphocytes 3.72 k/cumm (1.2-3.4) H 06/17/19 13:02 Absolute Monocytes 0.96 k/cumm (0.11-0.7) H 06/17/19 13:02 Absolute Eosinophils 0.14 k/cumm (0.0-0.7) 06/17/19 13:02 Absolute Basophils 0.02 k/cumm (0.0-0.2) 06/17/19 13:02 Urine Opiates Screen Negative (Negative) 06/17/19 14:25 Urine Methadone Screen Positive (Negative) A 06/17/19 14:25 Ur Barbiturates Screen Negative (Negative) 06/17/19 14:25 Ur Tricyclics Screen Negative (Negative) 06/17/19 14:25 Ur Amphetamines Screen Negative (Negative) 06/17/19 14:25 U Benzodiazepines Scrn Negative (Negative) 06/17/19 14:25 Urine Cocaine Screen Negative (Negative) 06/17/19 14:25 Ur THC Screen Positive (Negative) A 06/17/19 14:25 Patient ABO/Rh A Positive 06/17/19 13:02 Antibody Screen Negative 06/17/19 13:02
--- NOTE | 2019-06-18 17:50 | ROE_ITS ---
Date of service: 06/18/19 Time of Service: 17:50 Operative Note Operative Note DATE OF PROCEDURE: 06/17/19 POST-OP DIAGNOSIS: same PROCEDURE: Operative vaginal delivery with forceps SURGEON: Roberto Patrick ANESTHESIA: epidural ESTIMATED BLOOD LOSS: 0 PATHOLOGY: none sent Patient was transported to: floor Patient's condition: stable Procedure Description: I was called to evaluated the patient for an abnormal tracing during second stage of labor. The patient had been pushing for approximately 2 hours and displayed recurrent deep variable decelerations with slow return to baseline and minimal variability. The patient was counseled on risks of operative vaginal delivery including facial nerve injury, and intracranial hemorrhage. After verbal consent was obtained the fetus was noted to be in JOAN position at +2 station. Liukart forceps were applied easily. Maternal efforts were augmented with gentle traction. A midline episiotomy was made after infiltration with 1% lidocaine. On delivery of the head a significant shoulder dystocia was encountered. Camila maneuver and supra- pubic pressure were applied without result. Initially Montesinos corkscrew was attempted and again without result. An attempt was made to mobilize the posterior arm and this was unsuccessful. A second attempt was made at Montesinos corkscrew and with intermittent supra-pubic pressure rotation and eventual release of the impacted shoulder was accomplished. The infant was taken directly to the awaiting landscape painter in attendance at delivery. Delivered a vigorous LBF with of 7,9. The placenta was delivered spontaneously and intact. A third degree extension to the episiotomy was noted. The EAS was reapproximated with 3-0 vicryl suture in an end-to-end fashion. The vaginal mucosa and perineum were repaired with 2-0 chromic in the usual fashion.
[2019-06-19] MEDS: Acetaminophen 325 MG TAB 650 MG PO ×3 (01:46→17:31)
[2019-06-19] MEDS: Ibuprofen 600 MG TAB PO ×3 (01:49→17:32)
[2019-06-19 09:08] LABS: HCT 24.2 % (36.0-46.0); HGB 7.7 g/dL (12.0-15.5); Mean Corp. HGB Concentration 31.8 g/dL (32.0-36.0); Mean Corpuscular Hemoglobin 25.4 pg (27.0-33.0); Mean Corpuscular Volume 79.9 fL (80-95); Mean Platelet Volume 9.5 fL (8.0-11.0); Platelet Count 278 x1000/uL (130-400); RBC 3.03 m/cumm (4.00-5.20); RBC Distribution Width 14.1 % (11.7-14.6)
[2019-06-19] MEDS: Methadone Liquid 10 MG/ML 48 MG PO (11:34)
[2019-06-19] MEDS: Docusate Sodium 100 MG CAP PO (17:32)
[2019-06-19] MEDS: IRON SUCROSE COMPLEX 200 MG in Normal Saline 100 ML 400 MG IVPB (17:36)
[2019-06-20] MEDS: Ibuprofen 600 MG TAB PO ×2 (09:48→21:30)
[2019-06-20] MEDS: Acetaminophen 325 MG TAB 650 MG PO ×2 (09:48→21:30)
[2019-06-20] MEDS: Docusate Sodium 100 MG CAP PO (09:48)
[2019-06-20] MEDS: Methadone Liquid 10 MG/ML 48 MG PO (11:11)
[2019-06-20] MEDS: Hamamelis Leaf/Glycerin 100 EACH BOX PR (15:05)
== END 2019-06-20 22:15 | disposition home or self-care (01) | DRG 768 ==
PROVIDERS: Advanced Practice Midwife; Admitting Provider Advanced Practice Midwife; PCP Nurse Practitioner Adult Health; Visit Provider Advanced Practice Midwife
DX: O32.1XX0 Maternal care for breech presentation, not applicable or unspecified (principal); Z37.0 Single live birth; O99.324 Drug use complicating childbirth; F11.20 Opioid dependence, uncomplicated; Z3A.38 38 weeks gestation of pregnancy; O77.0 Labor and delivery complicated by meconium in amniotic fluid; O66.0 Obstructed labor due to shoulder dystocia; O76 Abnormality in fetal heart rate and rhythm complicating labor and delivery; O62.1 Secondary uterine inertia; O90.81 Anemia of the puerperium; O99.334 Smoking (tobacco) complicating childbirth; O99.344 Other mental disorders complicating childbirth; D64.9 Anemia, unspecified; F17.210 Nicotine dependence, cigarettes, uncomplicated; F41.8 Other specified anxiety disorders; F12.10 Cannabis abuse, uncomplicated; Z62.819 Personal history of unspecified abuse in childhood
CPT/HCPCS: 36415; 80307; 85027; 86850; 86900; 86901; 85025; 87081; J1756; J2540; J3490

== ENCOUNTER 2021-02-26 12:29 | Emergency (ER) | payer MEDICAID, SELFPAY ==
[2021-02-26 12:33] VITALS: BP 131/90; PULSE 93; RESP 18; TEMP 36.7; O2SAT 98
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
[2021-02-26] MEDS: Ibuprofen 600 MG TAB PO (12:48)
--- NOTE | 2021-02-26 13:24 | DI.RAD_ITS ---
Exam(s) XR ELBOW LT COMPLETE XR FOREARM LT EXAM: XR ELBOW LT COMPLETE CLINICAL HISTORY: pain s/p fall. TECHNIQUE: 2D digital imaging was performed. COMPARISON: CR,XR XR FOREARM LT from 02/26/2021 FINDINGS: BONES: There is a fracture the radial head involving the articular surface with several millimeters of depression and mild separation of the fracture fragments. No additional fractures are seen. Fore arm and wrist are unremarkable as visualized. No bony destructive lesion is seen. JOINTS: The elbow is normally aligned. A joint effusion is seen. SOFT TISSUE: Normal. IMPRESSION: Radial head fracture. DATA REPOSITORY: RADIATION DOSE DELIVERED:
--- NOTE | 2021-02-26 13:57 | DI.VRAD_ITS ---
PROCEDURE INFORMATION: Exam: XR Left Forearm Exam date and time: 02/26/2021 12:45 PM Age: 35 years old Clinical indication: Injury or trauma; Blunt trauma (contusions or hematomas); Elbow; Left; Injury details: Fall/pain TECHNIQUE: Imaging protocol: XR Left forearm. Views: 2 views. COMPARISON: No relevant images were readily available for comparison purposes. FINDINGS: Bones/joints: Acute appearing mildly displaced radial head fracture. No other acute fracture or dislocation. Soft tissues: Unremarkable. IMPRESSION: Acute radial head fracture. Dictated and Authenticated by: Fredrick Griffin MD. Ordering:BRENDA Montes De Oca MD
--- NOTE | 2021-02-26 13:57 | DI.VRAD_ITS ---
PROCEDURE INFORMATION: Exam: XR Left Elbow Exam date and time: 02/26/2021 12:45 PM Age: 35 years old Clinical indication: Injury or trauma; Blunt trauma (contusions or hematomas); Elbow; Left; Injury details: Fall/pain TECHNIQUE: Imaging protocol: XR Left elbow. Views: 3 or more views. COMPARISON: CR XR FOREARM LT 02/26/2021 1:15 PM FINDINGS: Acute mildly displaced radial head fracture. Effusion at the elbow. Impression: Acute fracture radial head. Dictated and Authenticated by: Fredrick Griffin MD. Ordering:BRENDA Montes De Oca MD
[2021-02-26 14:27] VITALS: BP 134/81; PULSE 81; RESP 18; O2SAT 97
== END 2021-02-26 14:28 | disposition home or self-care (01) ==
PROVIDERS: Emergency Provider Emergency Medicine; PCP Nurse Practitioner Adult Health
DX: S52.122A Displaced fracture of head of left radius, initial encounter for closed fracture (principal); S50.12XA Contusion of left forearm, initial encounter; W54.1XXA Struck by dog, initial encounter; W08.XXXA Fall from other furniture, initial encounter
CPT/HCPCS: 24650; 81025; 99281; 73080; 73090

== ENCOUNTER 2021-03-29 20:05 | Emergency (ER) | payer MEDICAID, SELFPAY ==
[2021-03-29 20:24] VITALS: BP 138/74; PULSE 65; RESP 16; TEMP 36.5; O2SAT 99
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
--- NOTE | 2021-03-29 21:15 | DI.RAD_ITS ---
Exam(s) XR FINGER LT INDEX EXAM: XR FINGER LT INDEX CLINICAL HISTORY: Puncture wound, r/o FB/ Fracture TECHNIQUE: COMPARISON: No exams were available for comparison FINDINGS: Three views were obtained. There is no bony abnormality. No foreign body identified. IMPRESSION: RADIATION DOSE DELIVERED: Total DLP
--- NOTE | 2021-03-29 22:29 | DI.VRAD_ITS ---
PROCEDURE INFORMATION: Exam: XR Left Finger(s) Exam date and time: 03/29/2021 9:21 PM Age: 35 years old Clinical indication: Other: Puncture wound, R/O fb TECHNIQUE: Imaging protocol: XR Left fingers. Views: Minimum 2 views. COMPARISON: CR XR FOREARM LT 02/26/2021 1:15 PM FINDINGS: Bones/joints: No fracture. No malalignment. Soft tissues: No radiopaque foreign body. Soft tissue swelling noted in the 2nd digit. IMPRESSION: No radiopaque foreign body Dictated and Authenticated by: Josue Lambert MD. Ordering:KYM Croft MD
[2021-03-29] MEDS: Cephalexin 500 MG CAP, 2 CAPS/BTL PO (22:50)
[2021-03-29] MEDS: Cephalexin 500 MG CAP PO (22:50)
== END 2021-03-29 22:49 | disposition home or self-care (01) ==
PROVIDERS: Emergency Provider Registered Nurse Emergency; PCP Nurse Practitioner Adult Health
DX: S61.211A Laceration without foreign body of left index finger without damage to nail, initial encounter (principal); W26.8XXA Contact with other sharp object(s), not elsewhere classified, initial encounter
CPT/HCPCS: 12001; 99283; 73140; 99282

== ENCOUNTER 2023-02-13 04:08 | Outpatient (CLI) | payer MEDICAID, SELFPAY ==
[2023-02-13 15:13] LABS: Abs Immature Grans 0.03 10^3/uL (0.0-0.06); Absolute Basophil Count 0.06 10^3/uL (0.0-0.2); Absolute Eosinophil Count 0.13 10^3/uL (0.0-0.7); Absolute Monocyte Count 0.54 10^3/uL (0.1-0.8); Absolute Neutrophil Count 5.01 10^3/uL (1.2-6.7); Basophils % 0.8; Eosinophils % 1.7; HCT 42.8 % (36.0-46.0); HGB 14.4 g/dL (11.2-15.7); Immature Grans % 0.4; Lymphocytes % 26.7; MCH 33.6 pg (27.0-33.0); MCHC 33.6 % (32.0-36.0); MCV 100 fL (80-95); MPV 8.7 fL (8.0-11.0); Monocytes % 6.9; Neutrophils % 63.5; Platelet Count 250 10^3/uL (130-400); RBC 4.28 10^6/uL (3.93-5.22); RDW 12.1 % (11.7-14.6); RDW-SD 44.5 fL; WBC 7.87 10^3/uL (4.4-10.8)
[2023-02-13 17:05] LABS: ALT 85 U/L (14-59); AST 275 U/L (15-37); Albumin 3.3 g/dL (3.4-5.0); Alkaline Phosphatase 194 U/L (46-116); BUN 2 mg/dL (7-18); Bilirubin, Total 0.5 mg/dL (0.2-1.0); CREATININE 0.7 mg/dL (0.55-1.02); Calcium 9.4 mg/dL (8.5-10.1); Calculated LDL 192 mg/dL (<100); Chloride 99 mmol/L (98-107); Cholesterol 287 mg/dL (<200); Estimated GFR 115.59 (mL/min/1.73m2); Glucose 115 mg/dL (74-106); HDL Cholesterol 55 mg/dL (40-60); Potassium 3.2 mmol/L (3.5-5.1); Sodium 136 mmol/L (136-145); TSH (W/Ref FT4) 3.83 uIU/mL (0.36-3.74); Total Protein 8.7 g/dL (6.4-8.2); Triglyceride 200 mg/dL (<150); Vitamin B12 496 pg/mL (193-986)
[2023-02-13 17:34] LABS: FREE T4 0.82 ng/dL (0.76-1.46)
[2023-02-14 10:57] LABS: Hepatitis C Ab w Rflx HCV PCR Negative (Negative)
[2023-02-14 11:19] LABS: HIV-1/2 Ag & Ab Screen Negative (Negative)
== END 2023-02-13 04:09 | disposition home or self-care (01) ==
LOC: LBO 04:08
PROVIDERS: PCP Nurse Practitioner Adult Health; Visit Provider Nurse Practitioner Adult Health
DX: F17.200 Nicotine dependence, unspecified, uncomplicated (principal); F32.9 Major depressive disorder, single episode, unspecified; F41.9 Anxiety disorder, unspecified; Z11.4 Encounter for screening for human immunodeficiency virus [HIV]; Z11.59 Encounter for screening for other viral diseases; Z13.1 Encounter for screening for diabetes mellitus; Z13.220 Encounter for screening for lipoid disorders
CPT/HCPCS: 36415; 80053; 80061; 86803; 87389; 82607; 82746; 84439; 84443; 85025

== ENCOUNTER 2024-04-16 23:50 | Emergency (ER) | payer MEDICAID, SELFPAY ==
[2024-04-17 00:03] VITALS: BP 146/70; PULSE 126; TEMP 36.7; O2SAT 97
[2024-04-17 00:20] LABS: Bilirubin Negative (Negative); Blood Negative (Negative); Clarity Clear (Clear); Glucose Negative (Negative); Ketones Negative (Negative); Leukocyte Esterase Small (Negative); Nitrite Negative (Negative); Specific Gravity <= 1.005 (1.005-1.025); Urobilinogen 0.2 mg/dL (Up to 0.2); pH 5.5 (5-8)
[2024-04-17 00:26] LABS: Bacteria Few HPF (Negative); C & S Indicated? No/Sq. Contamination; Casts Negative LPF (Negative); Crystals Negative HPF (Negative); Epithelial Cells Moderate HPF (Negative); Mucus Negative (Negative); RBC Negative HPF (0-2)
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
[2024-04-17] MEDS: Acetaminophen 500 MG TAB 1000 MG PO (01:00)
[2024-04-17 01:01] VITALS: PULSE 99
[2024-04-17] MEDS: Ketorolac 15 MG/ML VIAL IM (01:01)
== END 2024-04-17 01:01 | disposition home or self-care (01) ==
PROVIDERS: Emergency Provider Student in an Organized Health Care Education/Training Program; PCP Nurse Practitioner Adult Health
DX: M54.50 Low back pain, unspecified (principal); N39.0 Urinary tract infection, site not specified; F17.210 Nicotine dependence, cigarettes, uncomplicated
CPT/HCPCS: 81025; 96372; 99284; 81003; 81015; 99283; J1885

== ENCOUNTER 2024-04-28 13:27 | Outpatient (REF) | payer MEDICAID, SELFPAY ==
--- NOTE | 2024-04-28 13:20 | PAPFT_PTH ---
PATIENT: Ana Og LOC: [facility] U#:[id number] AGE/SX: 38/F ROOM: RE04/28/[address]: Kristal Contreras : 1985 BED: DIS: 04/28/2024 SPEC #: [id number] RECD: 04/28/24 17:53 STATUS: ARELYShey REGómez #: [id number] TIFFANIE: 04/28/24 13:[address]: Kristal Contreras DEPT: [facility] Cytology RECD BY: Nia Tao ENTERED: 04/28/24 17:54 SP TYPE: PAPFT BIN DR: Frances Neil APRN Tissues: 1 - CX/ENDOCX FOR PAP SMEARS Procedures: PAP THIN PREP/[facility] Screening HPV DNA PROBE Comments: [id number] (HPV 16 & 18/45)
[2024-04-29 11:53] LABS: Chlamydia Result Negative (Negative); GC Result Negative (Negative)
== END 2024-04-28 13:28 | disposition home or self-care (01) ==
LOC: LBN 13:27
PROVIDERS: PCP Nurse Practitioner Adult Health; Visit Provider Obstetrics & Gynecology Gynecology
DX: N89.8 Other specified noninflammatory disorders of vagina (principal); M89.8X1 Other specified disorders of bone, shoulder; M89.8X2 Other specified disorders of bone, upper arm; R10.11 Right upper quadrant pain; A59.01 Trichomonal vulvovaginitis
CPT/HCPCS: 87491; 87591; 88142; 87480; 87510; 87624; 87660

== ENCOUNTER 2024-05-18 00:51 | Outpatient (CLI) | payer MEDICAID, SELFPAY ==
--- NOTE | 2024-05-18 06:45 | DI.RAD_ITS ---
Exam(s) XR CLAVICLE RT EXAM: XR CLAVICLE RT CLINICAL HISTORY: mass along middle of R clavicle,pain rt clavicle,m89.8xa TECHNIQUE: 2D digital imaging was performed of the right clavicle. Two images were obtained. AP and axial views were obtained. COMPARISON: No exams were available for comparison FINDINGS: BONES: No acute fracture is present. No bony destructive lesion is seen. JOINTS: No dislocation present. SOFT TISSUE: Normal IMPRESSION: 1. Unremarkable radiographs of the right clavicle. 2. If there is concern for soft tissue mass, further evaluation may be obtained with CT, MR or ultras ound depending on the clinical findings. DATA REPOSITORY: RADIATION DOSE DELIVERED:
--- NOTE | 2024-05-18 06:45 | DI.US_ITS ---
Exam(s) US ABDOMEN LIMITED EXAM: US ABDOMEN LIMITED CLINICAL HISTORY: abdominal pain - RUQ,r10.11 TECHNIQUE: Ultrasound abdomen performed using standard protocol. COMPARISON: No exams were available for comparison FINDINGS: PANCREAS: Normal where visualized. LIVER: There is diffuse increased echogenicity of the liver consistent with fatty infiltration. Hepa topetal flow in the Portal Vein. The liver measures in 22.8 cm length. No evidence of a hepatic mass. GALLBLADDER: No evidence of cholelithiasis. No evidence of wall thickening. No pericholecystic fluid identified. BILIARY SYSTEM: Common bile duct measures < 7 mm. No intrahepatic biliary ductal dilation. SIMONS'S SIGN: Negative. RIGHT KIDNEY: Kidney is normal in size. No evidence of renal calculi. No evidence of hydronephrosis. No renal mass or cyst identified. ASCITES: None seen. IMPRESSION: Fatty infiltration of the liver and hepatomegaly. DATA REPOSITORY:
== END 2024-05-18 01:11 ==
LOC: DI 00:51
PROVIDERS: PCP Nurse Practitioner Adult Health; Visit Provider Obstetrics & Gynecology Gynecology
DX: M89.8X1 Other specified disorders of bone, shoulder (principal); K76.0 Fatty (change of) liver, not elsewhere classified
CPT/HCPCS: 73000; 76705

== ENCOUNTER 2024-06-02 15:19 | Outpatient (CLI) | payer MEDICAID, SELFPAY ==
[2024-06-02 15:06] LABS: HCT 43.8 % (36.0-46.0); HGB 15.4 g/dL (11.2-15.7); MCH 35.2 pg (27.0-33.0); MCHC 35.2 % (32.0-36.0); MCV 100 fL (80-95); MPV 9.2 fL (8.0-11.0); Platelet Count 243 10^3/uL (130-400); RBC 4.38 10^6/uL (3.93-5.22); RDW 12.8 % (11.7-14.6); RDW-SD 46.9 fL; WBC 9.59 10^3/uL (4.4-10.8)
[2024-06-02 16:18] LABS: Hemoglobin A1C 4.9 % (<5.7)
[2024-06-02 16:25] LABS: ALT 85 U/L (14-59); AST 177 U/L (15-37); Albumin 3.5 g/dL (3.4-5.0); Alkaline Phosphatase 202 U/L (46-116); Anion Gap 12.3 mmol/L (3-11); BUN 3 mg/dL (7-18); Bilirubin, Total 0.49 mg/dL (0.2-1.0); CO2 28.7 mmol/L (21.0-32.0); CREATININE 0.8 mg/dL (0.55-1.02); Calcium 9.1 mg/dL (8.5-10.1); Calculated LDL 115 mg/dL (<100); Chloride 103 mmol/L (98-107); Cholesterol 238 mg/dL (<200); Estimated GFR 97.87 (mL/min/1.73m2); Folate 2.4 ng/mL (8.6-20.0); Glucose 105 mg/dL (74-106); HDL Cholesterol 83 mg/dL (40-60); Sodium 144 mmol/L (136-145); TSH (W/Ref FT4) 3.18 uIU/mL (0.36-3.74); Total Protein 8.6 g/dL (6.4-8.2); Triglyceride 201 mg/dL (<150); Vitamin B12 745 pg/mL (193-986)
[2024-06-02 22:32] LABS: HIV-1/2 Ag & Ab Screen Negative (Negative)
[2024-06-02 22:36] LABS: Hepatitis A Antibody IgM Negative (Negative); Hepatitis B Core Antibody Negative (Negative); Hepatitis B surface Ag Negative (Negative); Hepatitis C Ab w Rflx HCV PCR Negative (Negative)
== END 2024-06-02 15:20 | disposition home or self-care (01) ==
LOC: LBO 15:21
PROVIDERS: PCP Nurse Practitioner Adult Health; Visit Provider Nurse Practitioner Adult Health
DX: E03.8 Other specified hypothyroidism (principal); E53.8 Deficiency of other specified B group vitamins; R74.01 Elevation of levels of liver transaminase levels; E87.6 Hypokalemia; R71.8 Other abnormality of red blood cells; F17.210 Nicotine dependence, cigarettes, uncomplicated; E78.00 Pure hypercholesterolemia, unspecified; R73.01 Impaired fasting glucose
CPT/HCPCS: 36415; 80053; 80061; 85027; 86704; 86709; 86803; 87340; 87389; 82607; 82746; 83036; 84443

== ENCOUNTER 2024-06-19 14:40 | Emergency (ER) | payer MEDICAID, SELFPAY ==
[2024-06-19 14:43] VITALS: BP 134/83; PULSE 102; RESP 16; TEMP 37.1; O2SAT 98
[2024-06-19] MEDS: Ketorolac 15 MG/ML VIAL IM (15:08)
[2024-06-19] MEDS: Acetaminophen 500 MG TAB 1000 MG PO (15:08)
[2024-06-19] MEDS: Lidocaine 5% Patch 1 PATCH TP (15:09)
--- NOTE | 2024-06-19 15:24 | DI.RAD_ITS ---
Exam(s) XR SHOULDER LT COMPLETE 2+V EXAM: XR SHOULDER LT COMPLETE 2+V CLINICAL HISTORY: Fall, ongoing pain. TECHNIQUE: 2D digital imaging was performed. Three views. COMPARISON: No exams were available for comparison FINDINGS: BONES: No acute fracture is present. No bony destructive lesion is seen. JOINTS: No dislocation present. The AC joint is not widened. SOFT TISSUE: Normal. IMPRESSION: Unremarkable radiographs of the left shoulder. DATA REPOSITORY: RADIATION DOSE DELIVERED:
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
[2024-06-19 16:18] VITALS: BP 107/79; PULSE 86; RESP 14; O2SAT 98
== END 2024-06-19 16:23 | disposition home or self-care (01) ==
PROVIDERS: Emergency Provider Emergency Medicine; PCP Nurse Practitioner Adult Health
DX: M54.12 Radiculopathy, cervical region (principal); T14.8XXA Other injury of unspecified body region, initial encounter; R68.84 Jaw pain; K04.7 Periapical abscess without sinus; W19.XXXA Unspecified fall, initial encounter; F17.200 Nicotine dependence, unspecified, uncomplicated; F10.90 Alcohol use, unspecified, uncomplicated; F41.9 Anxiety disorder, unspecified
CPT/HCPCS: 96372; 99284; 73030; J1885

== ENCOUNTER 2024-08-04 14:54 | Outpatient (CLI) | payer MEDICAID, SELFPAY ==
[2024-08-04 15:04] LABS: HCT 41.1 % (36.0-46.0); HGB 13.8 g/dL (11.2-15.7); MCH 33.4 pg (27.0-33.0); MCHC 33.6 % (32.0-36.0); MCV 100 fL (80-95); MPV 8.9 fL (8.0-11.0); Platelet Count 317 10^3/uL (130-400); RBC 4.13 10^6/uL (3.93-5.22); RDW 12.1 % (11.7-14.6); RDW-SD 44.6 fL; WBC 7.79 10^3/uL (4.4-10.8)
[2024-08-04 15:45] LABS: ALT 41 U/L (14-59); AST 59 U/L (15-37); Albumin 3.1 g/dL (3.4-5.0); Alkaline Phosphatase 136 U/L (46-116); Bilirubin, Direct 0.2 mg/dL (0.0-0.2); Bilirubin, Total 0.34 mg/dL (0.2-1.0); Potassium 3.8 mmol/L (3.5-5.1); Total Protein 7.6 g/dL (6.4-8.2)
[2024-08-04 16:38] LABS: Folate 7.4 ng/mL (8.6-20.0)
== END 2024-08-04 14:55 | disposition home or self-care (01) ==
LOC: LBO 14:54
PROVIDERS: PCP Nurse Practitioner Adult Health; Visit Provider Nurse Practitioner Adult Health
DX: E87.6 Hypokalemia (principal); R71.8 Other abnormality of red blood cells; R74.01 Elevation of levels of liver transaminase levels; E53.8 Deficiency of other specified B group vitamins
CPT/HCPCS: 36415; 80076; 85027; 82746; 84132

== ENCOUNTER 2024-08-04 15:28 | Outpatient (REF) | payer MEDICAID, SELFPAY ==
[2024-08-04 16:54] LABS: C Diff PCR Negative (Negative)
[2024-08-06 10:29] LABS: Campylobacter PCR Negative (Negative); Salmonella PCR Negative (Negative); Shiga Toxin PCR Negative (Negative); Shigella/Enteroinvasive Ecoli Negative (Negative)
[2024-08-09 19:10] LABS: Calprotectin <50.0 mcg/g
== END 2024-08-04 15:29 | disposition home or self-care (01) ==
LOC: LBN 15:28
PROVIDERS: PCP Nurse Practitioner Adult Health; Visit Provider Nurse Practitioner Family
DX: R19.7 Diarrhea, unspecified (principal); F41.9 Anxiety disorder, unspecified; F32.9 Major depressive disorder, single episode, unspecified; F17.210 Nicotine dependence, cigarettes, uncomplicated; R74.01 Elevation of levels of liver transaminase levels; E87.6 Hypokalemia; F10.90 Alcohol use, unspecified, uncomplicated; T14.90XA Injury, unspecified, initial encounter
CPT/HCPCS: 87493; 87505; 83630; 83993; 87177

== ENCOUNTER 2024-11-26 14:43 | Observation (INO) | payer MEDICAID, SELFPAY ==
[2024-11-26 14:46] VITALS: BP 94/63; PULSE 66; RESP 14; TEMP 36.7
[2024-11-26 15:38] VITALS: BP 94/63; PULSE 66; RESP 14; TEMP 36.7
[2024-11-26 15:45] LABS: Abs Immature Grans 0.03 10^3/uL (0.0-0.06); Absolute Basophil Count 0.04 10^3/uL (0.0-0.2); Absolute Eosinophil Count 0.31 10^3/uL (0.0-0.7); Absolute Lymphocyte Count 2.69 10^3/uL (1.2-3.4); Absolute Neutrophil Count 5.46 10^3/uL (1.2-6.7); Basophils % 0.4 %; Eosinophils % 3.4 %; HCT 39.9 % (36.0-46.0); HGB 13.4 g/dL (11.2-15.7); Immature Grans % 0.3 %; Lymphocytes % 29.5 %; MCH 32.1 pg (27.0-33.0); MCHC 33.6 % (32.0-36.0); MCV 96 fL (80-95); MPV 9.3 fL (8.0-11.0); Monocytes % 6.6 %; Neutrophils % 59.8 %; Platelet Count 276 10^3/uL (130-400); RBC 4.17 10^6/uL (3.93-5.22); RDW 13.2 % (11.7-14.6); RDW-SD 45.9 fL; WBC 9.13 10^3/uL (4.4-10.8)
[2024-11-26 15:46] LABS: Bilirubin Small (Negative); Blood Negative (Negative); Clarity Clear (Clear); Glucose 100 mg/dL (Negative); Ketones Negative (Negative); Leukocyte Esterase Negative (Negative); Nitrite Negative (Negative); Specific Gravity 1.025 (1.005-1.025); pH 6.5 (5-8)
[2024-11-26] MEDS: Normal Saline - Diluent 50 ML VIAL IJ (15:46)
[2024-11-26] MEDS: Omnipaque 350 MG/ML 100 ML BTL 75 ML IJ (15:47)
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
--- NOTE | 2024-11-26 15:48 | DI.CT_ITS ---
Exam(s) CT ABDOMEN PELVIS W EXAM: CT ABDOMEN PELVIS W CLINICAL HISTORY: rlq abd pain TECHNIQUE: Imaging Protocol: Axial computed tomography images with coronal and sagittal reformatted images were created and reviewed. CONTRAST MATERIAL: Intravenous: Omnipaque 350 Contrast volume:75 mL Oral: No COMPARISON: There are no priors for comparison. FINDINGS: ABDOMEN: Lung Bases: No acute abnormality. Liver: Normal density. No measurable mass. Portal, Superior Mesenteric, and Splenic Veins: Unremarkable. Gallbladder and Biliary Tract: No radiodense calculus or dilation. The gallbladder is contracted limi ting evaluation. Pancreas: Normal density, no abnormal calcifications or inflammatory process. Spleen: Normal. Adrenals: No masses seen. Kidneys: Normal size, contour and axis. No radiodense stones or obstructive uropathy. No masses seen. Abdominal Aorta: Abdominal portion non-dilated. Bowel: No obstruction or bowel wall thickening. The appendix is distended measuring 1.2 cm in diamete r. (Series 10 images 67 through 70). The wall is enhancing. (Series 6 images 29 through 35). Ther e is fluid and debris seen within the appendix. The findings are most suspicious for appendicitis. Peritoneal Cavity: There is a small amount of fluid seen in the cul-de-sac. No focal fluid collectio n is seen to suggest an abscess. No free air. Lymph Nodes: Within normal limits. Bones: Within normal limits for the patient's age. Soft Tissues: Unremarkable. PELVIS: Bladder: Symmetric distention, no gross wall thickening. Reproductive Organs: Unremarkable as visualized. Lymph Nodes: Within normal limits. Bones: Within normal limits for the patient's age. IMPRESSION: Acute appendicitis with no evidence of abscess or free air. RADIATION DOSE DELIVERED: 401.72mGy.cm Total DLP DATA REPOSITORY: All CT scans at this facility are submitted to the National Radiology Data Registry (NRDR) Dose Index Registry (DIR) with the [employer] (A[employer]). RADIATION OPTIMIZATION: All CT scans at this facility use at least one of these dose optimization te chniques: automated exposure control; mA and/or kV adjustment per patient size (includes targeted exa ms where dose is matched to clinical indication); or iterative reconstruction.
[2024-11-26 15:57] LABS: Prothrombin Time 10.3 sec (9.1-11.1)
[2024-11-26] MEDS: Ondansetron 4 MG/2 ML VIAL IVP (15:59)
[2024-11-26 16:03] LABS: ALT 22 U/L (14-59); AST 22 U/L (15-37); Alkaline Phosphatase 162 U/L (46-116); BUN 9 mg/dL (7-18); Bilirubin, Total 0.8 mg/dL (0.2-1.0); CREATININE 0.7 mg/dL (0.55-1.02); Calcium 8.8 mg/dL (8.5-10.1); Chloride 101 mmol/L (98-107); Estimated GFR 114.16 (mL/min/1.73m2); Glucose 133 mg/dL (74-106); Sodium 140 mmol/L (136-145)
[2024-11-26 16:07] VITALS: BP 106/60; PULSE 68; RESP 18; O2SAT 99
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
[2024-11-26] MEDS: ACETAMINOPHEN 1,000 MG/100 ML BAG 1000 MG (16:33)
[2024-11-26] MEDS: PIPERACILLIN/TAZO 4.5 GM in Normal Saline 100 ML IVPB (16:33)
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
[2024-11-26 17:04] VITALS: BP 108/68; PULSE 68; RESP 16; O2SAT 99
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
[2024-11-26 17:41] VITALS: BP 81/43; PULSE 69; RESP 20; TEMP 36.1; O2SAT 99
[2024-11-26] MEDS: HYDROmorphone 2 MG/ML SYR 1 MG IVP ×2 (18:09→22:50)
[2024-11-26 19:56] VITALS: BP 97/58; PULSE 58; RESP 18; TEMP 35.8; O2SAT 99
[2024-11-26 20:35] VITALS: BMI 27.4
[2024-11-26] MEDS: Nicotine 14 MG/24 HR PATCH TD (22:28)
[2024-11-26] MEDS: ACETAMINOPHEN 1,000 MG/100 ML BAG 400 MG IVPB (22:28)
[2024-11-26] MEDS: Normal Saline Flush 10 ML SYR IVP (22:29)
[2024-11-26] MEDS: PIPERACILLIN/TAZO 3.375 GM in Normal Saline 50 ML IVPB (22:58)
[2024-11-27] VITALS (23 sets, daily range): BP systolic 92–136; BP diastolic 51–100; PULSE 46–92; RESP 9–20; TEMP 36.1–36.7; O2SAT 95–100
[2024-11-27] MEDS: Lactated Ringers 1,000 ML 75 ML IV (00:11)
[2024-11-27] MEDS: Normal Saline Flush 10 ML SYR IVP (04:28)
[2024-11-27] MEDS: ACETAMINOPHEN 1,000 MG/100 ML BAG 400 MG IVPB (04:28)
[2024-11-27] MEDS: PIPERACILLIN/TAZO 3.375 GM in Normal Saline 50 ML IVPB (04:46)
--- NOTE | 2024-11-27 07:20 | APP_PTH ---
PATIENT: Ana Og LOC: U#:[id number] AGE/SX: 39/F ROOM: RE11/26/[address]: Win Clarke MD : [id number] BED: A DIS: 11/27/2024 SPEC #: [id number] RECD: 11/29/24 12:42 STATUS: SOUShey REQ #: [id number] TIFFANIE: 11/27/24 07:[address]: Win Clarke DEPT: Surgical Specimen RECD BY: Nia Tao ENTERED: 11/29/24 12:42 SP TYPE: Appendix OTHR DR: Frances Neil APRN Tissues: 1 - APPENDIX NOT INCIDENTAL Procedures: GROSS AND MICRO LEVEL 3 Comments: [id number]
[2024-11-27] MEDS: Bupivacaine 0.25% Pres-Free W/EPI 30 ML VIAL (07:30)
--- NOTE | 2024-11-27 07:39 | W.PM.OP ---
Operative Note Operative Note PRE-OP DIAGNOSIS: Acute appendicitis POST-OP DIAGNOSIS: same PROCEDURE: Laparoscopic appendectomy SURGEON: Win Clarke RECORDS MANAGEMENT TECHNICIAN: Aye Gonzalez ANESTHESIA TYPE: Local By Surgeon and General:No Airway Refer to Anesthesia Record ESTIMATED BLOOD LOSS: 25 PATHOLOGY: other (Appendix) COMPLICATIONS: None Patient was transported to: PACU Patient's condition: stable Indications: Kylee is a 39-year-old woman with 3 days of right lower quadrant pain. CT scan demonstrated a thickened and inflamed appendicitis consistent with acute appendicitis. Findings: Acute appendicitis Procedure Description: After the induction of general anesthesia, I prepped and draped the anterior abdominal wall in the usual fashion. Next, I made an umbilical incision. Next, under the vision of the laparoscope, with the assistance of a 5 mm optical viewing port, I establish pneumoperitoneum. A 5 mm 30 degree camera was then reintroduced, and the underlying viscera was examined. There is no evidence of any trauma from entry. I raised a skin wheal in the left lower abdomen, and placed another 5 mm port here. Similarly, the suprapubic site was anesthetized, and a 12 mm port was placed here. Ana was then placed in Trendelenburg positioning with the left side down. There were some filmy adhesions of small intestine and greater omentum to the right lower pelvic sidewall. These were easily , and the greater omentum was retracted cephalad. Small bowel was swept out of the right lower quadrant, and a thickened inflamed appendix was immediately identified. The end of this was grasped, and elevated, and using a LigaSure device, I sequentially divided the mesoappendix down to the base of the appendix at the cecum. Next, using the Endo JUAN stapler, the appendix was removed with a healthy portion of cecal cuff. The appendix was placed in a specimen bag. The surgical site was suctioned clean. The staple line was healthy and hemostatic. The suprapubic port and specimen were then removed. A Rojas Herron wound closure device was reinserted through the suprapubic site, and 0 Vicryl sutures were used to close this defect. The 5 mm port was removed from the left mid abdomen. This was hemostatic. The camera was then removed, and all of the insufflated gas was released. The 5 mm port at the umbilical site was removed. All of the sites were irrigated clean, the skin was closed with subcuticular stitches. Bandages were applied, Ana was awoken from the anesthetic, extubated, transferred to the recovery unit. Date of Procedure: 11/27/24
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
[2024-11-27] MEDS: HYDROmorphone 2 MG/ML SYR IVP ×2 (08:03→08:11)
[2024-11-27] MEDS: Ketorolac 15 MG/ML VIAL IVP (08:13)
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
--- NOTE | 2024-11-27 08:33 | W.ANESPOSTOP ---
Postoperative Evaluation Date, Time and Location Date Performed: 11/27/24 Time Performed: 08:33 Patient Location: PACU Vital Signs Most Recent Imported Vital Signs: Most Recent Vital Signs Temp Pulse Resp BP Pulse Ox 36.7 C 51 L 12 93/60 L 98 11/27/24 08:12 11/27/24 08:21 11/27/24 08:21 11/27/24 08:21 11/27/24 08:21 Pain Score Most Recent Pain Score: Most Recent Pain Score Pain Level [Left Lower Abdomen 7 11/26/24 18:19 ] Pain Level 4 11/27/24 08:12 Assessment Mental Status: Awake (Alert & Oriented to Patient Baseline) Airway and Respiratory Function: Patent airway with normal (patient baseline) respiratory exam Cardiovascular Function: Hemodynamically Stable Hydration Status: Adequately Hydrated Nausea & Vomiting: No Nausea or Vomiting Pain: Pain is tolerable per patient Peripheral Nerve Block: Patient did not receive a nerve block
[2024-11-27] MEDS: Acetaminophen 325 MG TAB 650 MG PO (12:35)
[2024-11-27] MEDS: traMADol 50 MG TAB PO (12:35)
--- NOTE | 2024-11-27 18:25 | PDOC.CMDIS ---
Date of service: 11/27/24 Time of Service: 10:00 LACE Index Scoring Tool Questions: Length of Stay (in days): 1 Was the patient admitted via the E.D.?: Yes E.D. Visits: 2 Answers: Total Score: 6 Risk of Readmission: Low Risk Care Management Discharge Plan Reason for Hospitalization: appendicitis, s/p lap appy Discharge Plan: Ana was discharged home today before CM could meet with her. She will f/u with her PCP and with the surgeon and continue per her plan of care. She transported home in a private vehicle. Patient/Family Education Needs: Review of discharge instructions, activity, limitations, and discuss Ask me 3. SDOH Health Related Social Needs: No Data to Display
== END 2024-11-27 13:37 | disposition home or self-care (01) ==
LOC: ER 16:08 → MS 11-27 07:41
PROVIDERS: Admitting Provider Surgery; Emergency Provider Emergency Medicine; PCP Nurse Practitioner Adult Health; Responsible Provider Surgery; Visit Provider Surgery
PROC: 0DTJ4ZZ Resection of Appendix, Percutaneous Endoscopic Approach (ICD-10-PCS; CPT 44970; principal; 2024-11-27 06:10)
DX: K35.80 Unspecified acute appendicitis (principal); F11.20 Opioid dependence, uncomplicated; F10.90 Alcohol use, unspecified, uncomplicated; E87.6 Hypokalemia; Z79.899 Other long term (current) drug therapy; K64.8 Other hemorrhoids; E78.00 Pure hypercholesterolemia, unspecified; F32.A Depression, unspecified; F41.9 Anxiety disorder, unspecified; F43.10 Post-traumatic stress disorder, unspecified; R74.01 Elevation of levels of liver transaminase levels; E03.9 Hypothyroidism, unspecified; R73.01 Impaired fasting glucose
CPT/HCPCS: 44970; 36415; 80053; 81025; 87040; 96365; 96366; 96367; 96372; 96375; 96376; 99285; 74177; 81003; 85025; 85610; 88304; G0378; J0131; J1100; J1171; J1885; J2003; J2250; J2405; J2543; J2704; J3010; J3490

== ENCOUNTER 2025-03-24 15:55 | Outpatient (REF) | payer MEDICAID, SELFPAY ==
[2025-03-28 11:56] LABS: Chlamydia Result Negative (Negative); GC Result Negative (Negative)
== END 2025-03-24 15:56 | disposition home or self-care (01) ==
LOC: LBN 15:55
PROVIDERS: PCP Nurse Practitioner Adult Health; Visit Provider Obstetrics & Gynecology
DX: N89.8 Other specified noninflammatory disorders of vagina (principal); Z20.2 Contact with and (suspected) exposure to infections with a predominantly sexual mode of transmission; A59.9 Trichomoniasis, unspecified
CPT/HCPCS: 87491; 87591

== ENCOUNTER 2025-04-13 13:49 | Outpatient (CLI) | payer MEDICAID, SELFPAY ==
[2025-04-14 18:23] LABS: HIV-1/2 Ag & Ab Screen Negative (Negative)
[2025-04-14 18:41] LABS: Hepatitis C Ab w Rflx HCV PCR Negative (Negative)
[2025-04-15 13:42] LABS: Syphilis Serology (RPR) Negative (Negative)
== END 2025-04-13 13:50 | disposition home or self-care (01) ==
LOC: LBO 13:50
PROVIDERS: PCP Nurse Practitioner Adult Health; Visit Provider Obstetrics & Gynecology
DX: Z20.2 Contact with and (suspected) exposure to infections with a predominantly sexual mode of transmission (principal); A59.9 Trichomoniasis, unspecified; Z01.419 Encounter for gynecological examination (general) (routine) without abnormal findings
CPT/HCPCS: 36415; 86803; 87340; 87389; 86592

== ENCOUNTER 2025-04-21 18:14 | Outpatient (REF) | payer MEDICAID, SELFPAY | END 2025-04-21 18:15 | disposition home or self-care (01) | LOC: LBN 18:14 | PROVIDERS: PCP Nurse Practitioner Adult Health; Visit Provider Obstetrics & Gynecology | DX: A64 Unspecified sexually transmitted disease (principal) | CPT/HCPCS: 87480; 87510; 87660 ==

== ENCOUNTER 2025-06-14 21:30 | Emergency (ER) | payer MEDICAID, SELFPAY ==
[2025-06-14] VITALS (14 sets, daily range): BP systolic 134; BP diastolic 81; PULSE 101–134; RESP 24; TEMP 37; O2SAT 96
--- NOTE | 2025-06-14 21:30 | RT.EKG_ITS ---
APPROVED REPORT Exam: Resting ECG Reason for Exam: chest pain Patient Location: E HR:111 bpm ECG Measurements Heart Rate 111 AXIS FL 118 P 31 QRSd 82 QRS 19 QT 322 T 31 QTc 438 Conclusion Sinus tachycardia...rate> 99
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
[2025-06-14 22:21] LABS: Abs Immature Grans 0.03 10^3/uL (0.0-0.06); HCT 39.8 % (36.0-46.0); HGB 13.7 g/dL (11.2-15.7); Immature Grans % 0.4 %; MCH 32.3 pg (27.0-33.0); MCHC 34.4 % (32.0-36.0); MCV 94 fL (80-95); MPV 8.7 fL (8.0-11.0); Platelet Count 305 10^3/uL (130-400); RBC 4.24 10^6/uL (3.93-5.22); RDW 13.5 % (11.7-14.6); RDW-SD 46.3 fL; WBC 8.40 10^3/uL (4.4-10.8)
[2025-06-14 22:38] LABS: Lipase 34 U/L (<53); Magnesium 2.1 mg/dL (1.6-2.6)
[2025-06-14] MEDS: Acetaminophen 500 MG TAB 1000 MG PO (22:38)
[2025-06-14] MEDS: Lidocaine 5% Patch 1 PATCH TP (22:38)
[2025-06-14 22:40] LABS: ALT 42 U/L (10-49); AST 57 U/L (<34); Albumin 4.5 g/dL (3.2-5.0); Alkaline Phosphatase 105 U/L (46-116); Anion Gap 9.2 mmol/L (3-11); BUN 13 mg/dL (9-23); Bilirubin, Total 0.2 mg/dL (0.2-1.2); CO2 22.8 mmol/L (20.0-31.0); Calcium 8.8 mg/dL (8.3-10.6); Chloride 114 mmol/L (98-107); Glucose 107 mg/dL (74-106); Potassium 3.9 mmol/L (3.5-5.1); Sodium 146 mmol/L (136-145); Total Protein 7.6 g/dL (5.7-8.2); Troponin I < 3 ng/L (<35)
[2025-06-14 22:46] LABS: D-Dimer 263 ng/mlFEU (<500)
[2025-06-15] VITALS (9 sets, daily range): BP systolic 137; BP diastolic 77; PULSE 92–121; RESP 18; O2SAT 99
--- NOTE | 2025-06-15 | DI.RAD_ITS ---
Exam(s) XR LUMBAR SPINE COMPLETE EXAM: XR LUMBAR SPINE COMPLETE CLINICAL HISTORY: Lower back pain. TECHNIQUE: 2D digital imaging was performed. COMPARISON: None FINDINGS: Five views There is variant anatomy in that there is sacralization of the L5 segment. There is no evidence of fracture or listhesis and there are no pars defects. The mildly diminished height of the L5-S1 disc space is most probably related to the sacralization. There is some mild facet arthropathy at the lower levels. Sacroiliac joints appear unremarkable. Bone density normal. No osseous lesions. No scoliosis. IMPRESSION: No acute osseous findings in the lumbosacral spinal column. DATA REPOSITORY: RADIATION DOSE DELIVERED:
--- NOTE | 2025-06-15 | DI.RAD_ITS ---
Exam(s) XR RIBS LT W PA LAT CHEST EXAM: XR RIBS LT W PA LAT CHEST CLINICAL HISTORY: Left side rib pain. TECHNIQUE: 2D digital imaging was performed. COMPARISON: No exams were available for comparison FINDINGS: Total 6 views Left ribs-four views: There are no left rib fractures identified. No rib lesions. Ipsilateral clavicle unremarkable. Chest-two views: Heart size normal. Mediastinum not widened. Lungs are clear with no infiltrates nor pleural effusions. No pneumothorax. IMPRESSION: No left rib fractures. No acute pulmonary findings. DATA REPOSITORY: RADIATION DOSE DELIVERED:
[2025-06-15 00:07] LABS: Troponin I < 3 ng/L (<35)
[2025-06-15 00:33] LABS: Glucose Negative (Negative)
--- NOTE | 2025-06-15 02:26 | DI.VRAD_ITS ---
PROCEDURE INFORMATION: Exam: XR Left Ribs Exam date and time: 06/15/2025 1:04 AM Age: 39 years old Clinical indication: Right-sided; Other: Anterior upper rib pain TECHNIQUE: Imaging protocol: Radiologic exam of the left ribs. Views: 2 views. COMPARISON: CT ABDOMEN PELVIS W 11/26/2024 3:38 PM FINDINGS: Bones/joints: Normal. Soft tissues: Normal. IMPRESSION: No acute findings. PROCEDURE INFORMATION: Exam: XR Chest Exam date and time: 06/15/2025 1:04 AM Age: 39 years old Clinical indication: Right-sided; Other: Anterior upper rib pain TECHNIQUE: Imaging protocol: Radiologic exam of the chest. Views: 2 views. COMPARISON: CT ABDOMEN PELVIS W 11/26/2024 3:38 PM FINDINGS: Lungs: Unremarkable. No consolidation. Pleural spaces: Unremarkable. No pleural effusion. No pneumothorax. Heart/Mediastinum: Unremarkable. No cardiomegaly. Bones/joints: Unremarkable. IMPRESSION: No acute findings. Dictated and Authenticated by: Viral Candelario MD. Orderin Edelmira Croft MD
--- NOTE | 2025-06-15 02:30 | DI.VRAD_ITS ---
PROCEDURE INFORMATION: Exam: XR Lumbosacral Spine Exam date and time: 06/15/2025 1:13 AM Age: 39 years old Clinical indication: Low back pain; Lower back pain TECHNIQUE: Imaging protocol: Radiologic exam of the lumbosacral spine. Views: 4 or 5 views. COMPARISON: CT ABDOMEN PELVIS W 11/26/2024 3:38 PM FINDINGS: Bones/joints: Partial straightening of the normal lumbar lordosis may significant muscle spasm. No evidence of acute fracture. Soft tissues: Unremarkable. Gastrointestinal tract: Stool and gas throughout the mildly distended visualized portions of the colon, raising the possibility of constipation. IMPRESSION: 1. Partial straightening of the normal lumbar lordosis may significant muscle spasm. 2. No evidence of acute fracture. 3. Stool and gas throughout the mildly distended visualized portions of the colon, raising the possibility of constipation. Dictated and Authenticated by: Viral Candelario MD. Orderin Edelmira Croft MD
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
== END 2025-06-15 02:45 | disposition home or self-care (01) ==
PROVIDERS: Registered Nurse Emergency; Emergency Provider Student in an Organized Health Care Education/Training Program; PCP Nurse Practitioner Adult Health
DX: S39.012A Strain of muscle, fascia and tendon of lower back, initial encounter (principal); M62.830 Muscle spasm of back; Y04.2XXA Assault by strike against or bumped into by another person, initial encounter
CPT/HCPCS: 99284; 99285; 36415; 81025; 00123; 80053; 83690; 93005; 71046; 71100; 72110; 81003; 83735; 84484; 85025; 85379; 93010